=== PATIENT | male | born 1990 | race Caucasian/White ===

== ENCOUNTER 2022-09-21 09:17 | Outpatient (RCR) | payer OTHER, SELFPAY ==
--- NOTE | 2022-09-22 09:28 | PC.NURSE ---
Marco did not show up to the program for their first day at [facility]. I called and spoke to Marco who stated they had a crisis and are currently admitted to the Behavioral Health Inpatient unit at [facility]. [facility] staff is aware. Patient discharged from [facility].
== END 2022-09-21 23:59 | disposition admitted as inpatient to this hospital (09) ==
LOC: HO.PHPA 09:17
PROVIDERS: Visit Provider Psychiatry & Neurology Psychiatry
DX: F31.32 Bipolar disorder, current episode depressed, moderate (principal); F25.1 Schizoaffective disorder, depressive type; F10.20 Alcohol dependence, uncomplicated; F12.20 Cannabis dependence, uncomplicated; F64.0 Transsexualism; Z91.51 Personal history of suicidal behavior

== ENCOUNTER 2022-10-15 09:00 | Outpatient (RCR) | payer OTHER, SELFPAY ==
[2022-10-14 12:56] VITALS: BP 104/80; PULSE 80; TEMP 36.8
[2022-10-14 12:57] VITALS: BMI 35.8
--- NOTE | 2022-10-14 14:30 | PC.ADMIT ---
Patient is a 32 year old trans-gendered female to male patient who uses he/him pronouns. 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 He was referred to [facility] by [facility] behavioral health unit x2 where he was admitted for the second time after being discharged recently from the unit on 09/08/22. Patient struggling with depression and SI. He has a history of multiple SA including trying to hang himself and overdose on medications with subsequent inpatient admissions. Most recent inpatient admission pt reportedly took 7 tabs with a bottle of wine in a SA on 09/19/22 as he reportedly was rejected by his best friend whom he professed his love to. In addition, patient also has a history of 26 ECT treatments. See Intergrative Assessment and [facility] discharge paperwork for more information. Patient is alert and oriented x4. Calm and cooperative. Presented with depressed mood and anxious affect. Denied SI or thoughts to harm himself. When I asked him how her felt about his past SA he stated, Grateful it didn't cause me to . Reviewed and gave patient a copy of his safety plan if needed. Medications reconciled with patient and [facility] discharge paperwork. Patient reports he is taking his medications as prescribed. Stated in the past he was not taking them as prescribed. He report his parents are in charge of his medications and have all his medications. Stated his parents fill a weekly pill organizer for him to take.
--- NOTE | 2022-10-14 15:24 | HO.PHPIOP ---
Case opened in treatment team.
--- NOTE | 2022-10-15 10:51 | PC.NURSE ---
Per clinician Sherry patient left the first group after getting into a disagreement with another patient. The topic was suicide. I called Marco and he was on his way home. He stated he was offended by the other group member and did not want to come back to the program. He is not willing to try and work it out with the other patient at this point. I asked him if he was having any suicidal thoughts and he stated he was after the incident. I asked him if he had any plans to kill himself or intention of killing himself and he stated he did not. I also asked him if he needed to go into the hospital and he stated he did not. I told him I thought it was a good idea to have crisis evaluate him at his home and he agreed (considering patient history). I called [facility] crisis and spoke to Elzbieta who is familiar with Marco. I gave Elzbieta patient aforementioned information and included his recent hospitalizations and that he is not interested in returning to [facility] Elzbieta stated she would call him and do a crisis assessment with Marco. I asked Elzbieta to call me if she is unable to get a hold of Lara and she stated she would. [facility] staff is aware.
--- NOTE | 2022-10-15 12:40 | PM.EVENT ---
Event Note Date of Service: 10/15/22 Event Note: This credit underwriter attempted to meet with patient for initial assessment on 10/14, and again today on 10/15. He left early both days, was unable to meet. Time Spent With Patient Time: Total time managing care of this patient today ____ minutes.
== END 2022-10-15 23:59 | disposition home or self-care (01) ==
LOC: HO.PHPA 09:00
PROVIDERS: Visit Provider Psychiatry & Neurology Psychiatry
DX: F31.4 Bipolar disorder, current episode depressed, severe, without psychotic features (principal); F25.1 Schizoaffective disorder, depressive type; F10.20 Alcohol dependence, uncomplicated; F12.20 Cannabis dependence, uncomplicated; F64.0 Transsexualism
CPT/HCPCS: 90853

== ENCOUNTER 2022-12-22 19:35 | Emergency (ER) | payer OTHER, SELFPAY ==
[2022-12-22 19:42] VITALS: BP 124/79; PULSE 98; RESP 18; TEMP 36.7; O2SAT 97; BMI 34.2
[2022-12-22] MEDS: LORazepam 1 MG TABLET PO (20:00)
[2022-12-22] MEDS: risperiDONE 1 MG TABLET PO (20:00)
--- NOTE | 2022-12-22 20:14 | MHC.EDTECH ---
pt refusing to give a urine sample at this time, RN AWARE.
[2022-12-22 20:19] LABS: COVID-19 Test Negative (Negative); IDNOW Serial# BCCEAD1C
--- NOTE | 2022-12-22 20:58 | ED_ITS ---
HPI - Psych General Chief Complaint: Psychiatric Symptoms Stated Complaint: crisis Time Seen by Provider: 12/22/22 19:39 Source: patient Mode of arrival: ambulatory Limitations: no limitations History of Present Illness HPI Narrative: 32-year-old female to male trans patient with a history of PTSD, schizoaffective disorder, anxiety, depression, SI presents via EMS from [facility], patient presented to [facility] for help and they advised for him to come here for eval. No homicidal ideation. Patient has thoughts without a particular plan to hurt themself. Patient has been hospitalized before for suicidal ideation. Patient states they are having delusions, auditory visual and tactile hallucination, nausea, diarrhea. Nausea and diarrhea intermittently over the past week, no recent atbx use.. Patient is currently taking Lamictal, Wellbutrin, Zoloft, Abilify, and testosterone. Patient states that they are questioning if there even real. Patient admits to daily marijuana use. Occasional alcohol use. Denies other drug use and tobacco use. Denies fevers, chills, sweats, chest pain, headache, blood in vomit or stool. Related Data Home Medications Medication Instructions Recorded Confirmed aripiprazole 20 mg tablet 1 tab PO DAILY depressive disorder 10/14/22 10/14/22 bupropion HCl 150 mg 24 hr tablet, 1 tab PO DAILY 10/14/22 10/14/22 extended release bupropion HCl 300 mg 24 hr tablet, 1 tab PO DAILY 10/14/22 10/14/22 extended release cetirizine 10 mg tablet 1 tab PO DAILY 10/14/22 10/14/22 cholecalciferol (vitamin D3) 50 50 mcg PO DAILY 10/14/22 10/14/22 mcg (2,000 unit) tablet famotidine 40 mg tablet 40 mg PO DAILY 10/14/22 10/14/22 fluticasone propionate 50 1 spray intranasal BID 10/14/22 10/14/22 mcg/actuation nasal spray,suspension lamotrigine 100 mg tablet 100 mg PO DAILY 10/14/22 10/14/22 lamotrigine 150 mg tablet 150 mg PO BEDTIME 10/14/22 10/14/22 omeprazole 20 mg capsule,delayed 1 cap PO DAILY 10/14/22 10/14/22 release sertraline 50 mg tablet 150 mg PO DAILY 10/14/22 10/14/22 testosterone 1 % (50 mg/5 gram) 1 packet topical DAILY 10/14/22 10/14/22 transdermal gel packet lamotrigine 200 mg tablet 1 tab PO BID 12/22/22 naltrexone 50 mg tablet 1 tab PO DAILY 12/22/22 Allergies Allergy/AdvReac Type Severity Reaction Status Date / Time oxycodone Allergy Rash Verified 10/14/22 10:54 walnut Allergy Rash Verified 10/14/22 10:54 Review of Systems Review of Systems: Constitutional : No Fever, No Chills ENT/Mouth : No Ear Pain, No Nasal Congestion, No sore throat Eyes: No Eye Pain, No Swelling, No Redness Cardiovascular : No Chest Pain, No SOB Respiratory : No Cough, No Sputum, No Dyspnea Gastrointestinal : + Nausea, no Vomiting, + Diarrhea, No Hematochezia, No Melena Genitourinary : No Dysuria, No Urinary Frequency, No Hematuria Musculoskeletal : No Myalgias Skin : No Skin Lesions, No rash Neuro : No Weakness, No Numbness, No Paresthesias, No Dizziness, No Headache Psych : + hallucinations, positive Anxiety, positive Depression, positive SI, NO HI All other systems reviewed and are negative Yes all other systems are reviewed and are negative [facility] Past Medical History Attestation statement: The following information was validated with the patient. Source: old records reviewed and nursing notes reviewed Social History Social History Household Members: None Patient Tobacco Use Status: Former Tobacco user Advance Directives: No Advance Directives Information Provided: No Physical Exam Vital Signs: Vital Signs: Last Vital Signs Temp 98.1 F 12/22/22 19:42 Pulse 98 12/22/22 19:42 Resp 18 12/22/22 19:42 BP 124/79 12/22/22 19:42 Pulse Ox 97 12/22/22 19:42 O2 Del Method 12/22/22 19:42 BMI result Body Mass Index 34.2 vss Appearance: Alert.? Oriented x3.? No acute distress.? Head: Normocephalic, atraumatic, no step-offs or deformities Eyes: Pupils equal, round and reactive to light.?? Neck: Normal inspection.? Neck supple.? CVS: Normal heart rate and rhythm.? Pulses normal.? Respiratory: No respiratory distress.? Breath sounds normal.? Abdomen: Soft and nontender.? Skin: Skin warm and dry.? Normal skin color.? Normal skin turgor.? Extremities: No lower extremity edema.? No calf ttp. 5/5 strength to bilateral upper and lower extremities Neuro: Oriented X 3.? No motor deficit.? No sensory deficit. CN 2-12 intact Course Reevaluation(s) Reevaluation #1: Patient has been adamantly refusing labs and urine since he got here. He does not medical complaints. I do not suspect metabolic disturbances. Vital signs are stable. At this time patient will be placed in observation to allow more time for inpatient psychiatric placement. At time observation was started patient common cooperative no acute distress. Will continue to monitor Time: 23:38 Medications Administered Discontinued Medications Generic Name Dose Route Start Last Admin Trade Name Freq PRN Reason Stop Dose Admin Lorazepam 1 mg 12/22/22 19:55 12/22/22 20:00 Lorazepam 1 Mg Tablet PO 12/22/22 19:56 1 mg ONCE ONE Administration Risperidone 1 mg 12/22/22 19:55 12/22/22 20:00 Risperidone 1 Mg Tablet PO 12/22/22 19:56 1 mg ONCE ONE Administration Medical Decision Making Medical Decision Making [facility] Narrative: 1136 32-year-old male presents with intermittent suicidal ideation, hallucinations, reports they have been having nausea and diarrhea intermittently over the past week however not at this time. Physical exam benign Likely a manic episode. Concerns for possible schizophrenia or bipolar disorder. I do not suspect metabolic abnormalities. Plan at this time basic labs, urine. Differential Diagnosis Differential Diagnoses: The differential diagnosis associated with the presentation includes Likely a manic episode. Concerns for possible schizophrenia or bipolar disorder. I do not suspect metabolic abnormalities. Admission/Observation Consideration of admission/observation: Escalation of care including admission/observation considered Consult Healthcare Provider Management of the patient was discussed with: Behavioral Health Provider Lab Data [facility] Lab Attestation statement: I reviewed the patient's lab results. Labs: Lab Results 12/22/22 Range/Units 19:56 COVID-19 (MIAH) Negative (Negative) COVID-19 Clin Com See Note Core Measures AMI core measures followed: Yes Measure exclusions: not indicated Critical Care Time Critical Care Time Critical Care Time: No Discharge Plan Discharge Clinical Impression: Acute psychosis Patient Disposition: Still a Patient Prescriptions: No Action lamotrigine 200 mg tablet 1 tab PO BID naltrexone 50 mg tablet 1 tab PO DAILY lamotrigine 150 mg Tablet 150 mg PO BEDTIME cetirizine 10 mg tablet 1 tab PO DAILY famotidine 40 mg Tablet 40 mg PO DAILY omeprazole 20 mg capsule,delayed release(DR/EC) 1 cap PO DAILY fluticasone propionate 50 mcg/actuation [place],Suspension 1 spray INTRANASAL BID Rx Instructions: administer into each nostril sertraline 50 mg Tablet 150 mg PO DAILY Rx Instructions: Take 3 tabs daily. lamotrigine 100 mg Tablet 100 mg PO DAILY testosterone 1 % (50 mg/5 gram) gel in packet 1 packet topical DAILY aripiprazole 20 mg tablet 1 tab PO DAILY bupropion HCl 300 mg tablet extended release 24 hr 1 tab PO DAILY bupropion HCl 150 mg tablet extended release 24 hr 1 tab PO DAILY cholecalciferol (vitamin D3) 50 mcg (2,000 unit) Tablet 50 mcg PO DAILY
--- NOTE | 2022-12-22 23:25 | MHC.EDTECH ---
pt continues to adamantly refuse all labs and imaging, PROVIDER AWARE.
--- NOTE | 2022-12-23 00:06 | PC.NURSE ---
Patient at the time of arrival restless/anxious, Ativan 1 mg PO and Risperidone 1 mg administered as ordered with + effective, patient currently in bed appears sleeping, patient disposition per [facility] is section 12 inpatient bed search, VSS, med rec completed/pending provider's approval, will continue to monitor.
--- NOTE | 2022-12-23 00:09 | PC.NURSE ---
Patient refused to provide us urine and blood sample for labs, we will re-approach in the morning, provider made aware.
[2022-12-23 06:51] VITALS: BP 122/73; PULSE 99; RESP 17; TEMP 36.7; O2SAT 97
--- NOTE | 2022-12-23 07:40 | PC.NURSE ---
pt is sleeping resp even and unlabored.
--- NOTE | 2022-12-23 07:56 | PHA.MEDREC ---
Pharmacy Consult ? Medication Reconciliation Pharmacy has reviewed the medication reconciliation completed by Ludin.
--- NOTE | 2022-12-23 08:10 | PC.NURSE ---
pt came out of they room and expressed to this rn that they would like to leave. care team aware.
--- NOTE | 2022-12-23 08:35 | PC.NURSE ---
pt seen by care team aware of plan of care.
[2022-12-23] MEDS: buPROPion HCl XL 150 MG TAB.ER.24H PO (09:09)
[2022-12-23] MEDS: Sertraline HCL 50 MG TABLET 150 MG PO (09:09)
[2022-12-23] MEDS: ARIPiprazole 20 MG TABLET PO (09:09)
[2022-12-23] MEDS: lamoTRIgine 100 MG TABLET PO (09:10)
[2022-12-23] MEDS: Omeprazole 20 MG CAPSULE.DR PO (09:10)
--- NOTE | 2022-12-23 09:19 | PC.NURSE ---
pt is a/o x 4 no sob/connie noted speaks in full sentences. pt denies any si/hi. lab and u/a to be done, pt is agreeable.
[2022-12-23 09:20] VITALS: BP 112/67; PULSE 90; RESP 17; TEMP 37.1; O2SAT 96
--- NOTE | 2022-12-23 09:46 | ECG_ITS ---
Test Reason : psych meds Blood Pressure : / mmHG Vent. Rate : 079 BPM Atrial Rate : 079 BPM P-R Int : 166 ms QRS Dur : 086 ms QT Int : 374 ms P-R-T Axes : 053 014 032 degrees QTc Int : 428 ms Normal sinus rhythm Normal ECG No previous ECGs available Referred By: Samy Cantrell Electronically Signed By:CINDY LITTLEJOHN
[2022-12-23 09:52] LABS: MANUAL DIFF FLAG NO
[2022-12-23 09:53] LABS: Basophils Percent Auto 0.6 % (0-2); Eosinophils Absolute Auto 0.1 X10*3/uL (0.0-0.4); Eosinophils Percent Auto 2.1 % (0-4); Hematocrit 41.8 % (42.0-52.0); Hemoglobin 14.2 g/dl (14.0-18.0); Lymphocytes Absolute Auto 1.9 X10*3/uL (1.2-4.9); Lymphocytes Percent Auto 40.4 % (20-40); Mean Corpuscular Hemoglobin 28.3 pg (27.0-33.0); Mean Corpuscular Volume 83.4 fL (80.0-98.0); Mean Platelet Volume 9.4 fL (9.4-12.4); Monocytes Absolute Auto 0.4 X10*3/uL (0.1-1.2); Monocytes Percent Auto 8.9 % (2-11); Neutrophils Absolute Auto 2.3 x10*3/uL (2.0-8.3); Platelet Count 207 X10*3/uL (160-400); Red Blood Count 5.01 X10*6/uL (4.60-5.80); Red Cell Distribution Width 12.4 % (11.0-16.0); White Blood Count 4.7 X10*3/uL (4.8-10.8)
[2022-12-23 10:10] LABS: Alanine Aminotransferase 33 U/L (0-40); Albumin Level 4.1 g/dL (3.5-5.0); Alkaline Phosphatase 53 U/L (39-117); Anion Gap 12 (12-20); Aspartate Amino Transferase 24 U/L (5-37); Bilirubin Total 0.8 mg/dL (0.0-1.0); Blood Urea Nitrogen 15 mg/dL (9-16); Calcium 9.1 mg/dL (8.4-10.2); Carbon Dioxide 26 mmol/L (22-29); Chloride 108 mmol/L (96-108); Creatinine Clr Calc Pharmacy 108.5; Estimated Glomerular Filt Rate > 60; Glucose Random 101 mg/dL (60-115); Potassium 4.3 mmol/L (3.3-5.1); Sodium 142 mmol/L (135-145); Total Protein 6.5 g/dL (6.5-8.0)
[2022-12-23 10:18] LABS: Acetaminophen LAB < 17 mcg/mL (<30); Ethanol < 10 mg/dL; Salicylate < 5.0 mg/dL (15-30)
[2022-12-23 10:30] LABS: Appearance Urine Cloudy; Color Urine Dark Yellow; Glucose Urine UA Negative (Negative); Leukocyte Esterase Urine Moderate (2+) (Negative); Nitrite Urine Negative (Negative); PH 5.5 (5.0-9.0); Specific Gravity - Urine 1.025 (1.005-1.025); UMIC TRIGGER UA YES; Urine Blood Negative (Negative); Urine Ketones Negative (Negative); Urine Protein Trace mg/dL (Neg-Trace)
[2022-12-23 10:41] LABS: Amphetamine Screen Urine Not Detected (Not Detect); Barbiturates, Urine Not Detected (Not Detect); Benzodiazepines Screen Urine Not Detected (Not Detect); Cannabinoid Screen Urine POSITIVE (Not Detect); Cocaine Screen Urine Not Detected (Not Detect); Fentanyl, urine Not Detected (Not Detect); Opiate Screen Urine Not Detected (Not Detect); Phencyclidine Screen Urine Not Detected (Not Detect)
[2022-12-23 10:51] LABS: Bacteria Urine 4+ (None Seen); WBC Urine 21-50 /HPF (0-5)
--- NOTE | 2022-12-23 11:25 | PC.NURSE ---
pt is on the phone in the common area. pt is very tearful and stating that they want to go home. pt has return to there room and continues to be tearful and non-aggressive.
--- NOTE | 2022-12-23 11:50 | PC.NURSE ---
sonya (psychiatrist) at bedside, pt aware of plan of care.
--- NOTE | 2022-12-23 12:05 | MHC.CARE ---
CARE Team [employer] Milka Ponce received a return call from Pts psychiatrist Liz for concerns in reference to pt?s current presentation. Liz reports when she met with pt yesterday she was presenting as off baseline and displaying abnormal behaviors and being ?shaken up.? She reported pt was exhibiting symptoms of paranoia and psychosis including delusions and hallucinations. Symptoms include pt believing the [employer] can read their thoughts and people will know they?re a monster. Pt is also reported to believe they can time travel. Liz reported that it would be favorable to re-evaluate pt?s medications. She reports that pt emphasized that they do not feel safe. She states that pt?s recent psychosis is her biggest concern.
[2022-12-23] MEDS: Acetaminophen 325 MG TABLET 650 MG PO (12:50)
--- NOTE | 2022-12-23 12:54 | PC.NURSE ---
pt c/o 06/09 headache, med x 1 with Tylenol 650mg po.
--- NOTE | 2022-12-23 13:50 | MHC.CARE ---
Safety Plan: If Marco feels they are going to? harm themselves, call 911 and/or come to closest ED? If Marco is dysregulated at home and? is unsure of what to do, call [facility] crisis services for support over the phone, and guidance on what the next steps should be. [phone]. This is a 24 hr hotline and can also be utilized for general phone support. Or call 988 CARE Team will provide a check in call on 12/24/2022.? Treatment Recommendations: Marco will remain engaged in individual therapy sessions and psychiatric provider? Lara? continues? to take their? medications as prescribed. Marco will use TIPP skills when under emotional distress.? Marco will attend 3pm [facility] appointment? 12/23/22 Contacts: [facility] [phone] [facility] Crisis Hotline 0-016-[facility] TALK/ ? CARE Team [phone] opt 1? at [facility] ?Should be called if there are questions about today?s assessment or recommendations. This is not a hotline and should not be used in a crisis. Please discuss/ review this safety plan with current? psychologist and family members
--- NOTE | 2022-12-24 09:39 | MHC.CARE ---
CARE Team [employer] called Marco today for a follow-up at 9:40am at [phone]. Left a voicemail and prompt for them to call back. Consulted with MARCELLUS King
== END 2022-12-23 13:57 | disposition home or self-care (01) ==
PROVIDERS: Physician Assistant; Emergency Provider Internal Medicine
DX: F23 Brief psychotic disorder (principal); R45.851 Suicidal ideations; R11.0 Nausea; R19.7 Diarrhea, unspecified; Z20.822 Contact with and (suspected) exposure to COVID-19; Z20.828 Contact with and (suspected) exposure to other viral communicable diseases; Z79.899 Other long term (current) drug therapy
CPT/HCPCS: 36415; 80053; 80143; 80179; 80307; 81001; 82077; 85025; 87635; 93005; 99285

== ENCOUNTER 2023-04-29 13:01 | Emergency (ER) | payer OTHER, SELFPAY ==
[2023-04-29 13:10] VITALS: BP 130/89; PULSE 98; RESP 18; TEMP 37.1; O2SAT 98; BMI 35.5
--- NOTE | 2023-04-29 13:16 | ED_ITS ---
HPI - Psych General Chief Complaint: Psychiatric Symptoms Stated Complaint: crisis Time Seen by Provider: 04/29/23 13:04 Source: patient Mode of arrival: ambulatory Limitations: no limitations History of Present Illness HPI Narrative: 33 yo male with history of PTSD, schizoaffective disorder, anxiety, depression, SI?with prior attempts presents to the ER from his therapist office via EMS for evaluation of worsening depression and SI for the last 2-3 months. He was hospitalized at [facility] with some improvement in his chronic depression. He went through a divorce this last year that has been hard on him. He has been compliant with his psych meds and seeing his therapist regularly. They recommended he come into the ER for psych evaluation. He reports thinking about OD'ing on his meds. He denies taking action. No ETOH or illicit drugs aside from marijuana. MD complaint: suicidal ideation and feels depressed Onset (ago): month(s) Duration: getting worse History of same: Yes Relieving factors: none Exacerbating factors: none Context: significant life stressor Associated psychiatric symptoms: depression and suicidal ideation Associated symptoms: denies other symptoms If self harm: admits thoughts of self harm and has plan Details of plan: OD Related Data Home Medications Medication Instructions Recorded Confirmed aripiprazole 20 mg tablet 1 tab PO DAILY 12/23/22 12/23/22 bupropion HCl 150 mg 24 hr tablet, 1 tab PO DAILY 12/23/22 12/23/22 extended release lamotrigine 100 mg tablet 1 tab PO QAM 12/23/22 12/23/22 lamotrigine 150 mg tablet 1 tab PO BEDTIME 12/23/22 12/23/22 omeprazole 20 mg capsule,delayed 1 cap PO DAILY 12/23/22 12/23/22 release sertraline 50 mg tablet 3 tab PO DAILY 12/23/22 12/23/22 Allergies Allergy/AdvReac Type Severity Reaction Status Date / Time oxycodone Allergy Rash Verified 10/14/22 10:54 walnut Allergy Rash Verified 10/14/22 10:54 Review of Systems Review of Systems: Yes all other systems are reviewed and are negative [facility] Social History Social History Household Members: None Alcohol intake: never Patient Tobacco Use Status: Former Tobacco user Smoked in Last 30 Days: Yes Use of substances other than those prescribed or required for medical reasons: Yes Substance Use Type: Marijuana Advance Directives: No Advance Directives Information Provided: Yes Physical Exam Vital Signs: Vital Signs: Last Vital Signs Temp 97.8 F 04/29/23 15:47 Pulse 98 04/29/23 15:47 Resp 20 04/29/23 15:47 BP 122/79 04/29/23 15:47 Pulse Ox 96 04/29/23 15:47 O2 Del Method Room Air 04/29/23 15:47 BMI result Body Mass Index 35.5 Appearance: Alert. Oriented X3. No acute distress. Head: normocephalic, atraumatic. Eyes: Pupils equal, round and reactive to light. ENT: Pharynx normal. No tonsillar swelling or exudate. Neck: Normal inspection. Neck supple. CVS: Normal heart rate and rhythm. Pulses normal. Respiratory: No respiratory distress. Breath sounds normal. Abdomen: Soft and nontender. +BS x4 Skin: Skin warm and dry. Normal skin color. Normal skin turgor. No rashes. Extremities: No lower extremity edema. No joint swelling. Neuro/psych: Oriented X 3. No motor deficit. No sensory deficit. CN II-XII intact. Normal speech and cognition. +SI, No HI, No VH/VH. makes eye contact. Medical Decision Making Medical Decision Making [facility] Narrative: 33 yo male presenting with worsening depression and SI. Hx the same. Now denying SI to CARE team. VSS. Labs unremarkable. CARE team spoke w/ family - feel safe taking him home with plan to follow up with partial on Tuesday. Family dispenses his meds. safety plan in place. stable for d/c home Differential Diagnosis Differential Diagnoses: The differential diagnosis associated with the presentation includes substance induced mood disorder, acute psychosis, schizophrenia, schizoaffective disorder, PTSD, bipolar disorder, major depression with psychotic features Admission/Observation Consideration of admission/observation: Escalation of care including admission/observation considered considered psych admit for active si Consult Healthcare Provider Management of the patient was discussed with: Behavioral Health Provider Lab Data [facility] Lab Attestation statement: I reviewed the patient's lab results. 04/29/23 13:55 04/29/23 13:55 Labs: Lab Results 04/29/23 04/29/23 04/29/23 Range/Units 13:28 13:29 13:55 WBC 6.8 (4.8-10.8) X10*3/uL RBC 5.42 (4.60-5.80) X10*6/uL Hgb 15.1 (14.0-18.0) g/dl Hct 44.2 (42.0-52.0) % MCV 81.5 (80.0-98.0) fL MCH 27.9 (27.0-33.0) pg MCHC 34.2 (31.0-36.0) g/dl RDW 12.7 (11.0-16.0) % Plt Count 248 (160-400) X10*3/uL MPV 9.4 (9.4-12.4) fL Immature Gran % (Auto) 0.3 (0.0-0.4) % Neut % (Auto) 57.3 (45-73) % Lymph % (Auto) 32.9 (20-40) % [place] % (Auto) 7.0 (2-11) % Eos % (Auto) 2.2 (0-4) % Baso % (Auto) 0.3 (0-2) % Lymph # (Auto) 2.2 (1.2-4.9) X10*3/uL [place] # (Auto) 0.5 (0.1-1.2) X10*3/uL Eos # (Auto) 0.2 (0.0-0.4) X10*3/uL Baso # (Auto) 0.0 (0.0-0.2) X10*3/uL Abs Immat Gran (auto) 0.02 (0.00-0.03) X10*3/uL Absolute Neuts (auto) 3.9 (2.0-8.3) x10*3/uL Absolute Nucleated RBC 0.000 (0.0-0.012) X10*3/uL Nucleated RBC % (auto) 0.0 (0.0-0.2) /100WBC Sodium (135-145) mmol/L Potassium (3.3-5.1) mmol/L Chloride (96-108) mmol/L Carbon Dioxide (22-29) mmol/L Anion Gap (12-20) BUN (9-16) mg/dL Creatinine (0.5-1.4) mg/dL Estim Creat Clear Calc Estimated GFR Random Glucose (60-115) mg/dL Calcium (8.4-10.2) mg/dL Magnesium (1.6-2.6) mg/dL Total Bilirubin (0.0-1.0) mg/dL Direct Bilirubin (0.0-0.5) mg/dL AST (5-37) U/L ALT (0-40) U/L Alkaline Phosphatase (39-117) U/L Total Protein (6.5-8.0) g/dL Albumin (3.5-5.0) g/dL Urine Color Yellow Urine Appearance Clear Urine pH 6.5 (5.0-9.0) Ur Specific [place] 1.010 (1.005-1.025) Urine Protein Negative (Neg-Trace) mg/dL Urine Glucose (UA) Negative (Negative) mg/dL Urine Ketones Negative (Negative) mg/dL Urine Blood Negative (Negative) Urine Nitrite Negative (Negative) Ur Leukocyte Esterase Moderate (2+) H (Negative) Urine RBC 0-2 (0-2) /HPF Urine WBC 21-50 H (0-5) /HPF Ur Squamous Epith Cells 0-2 (0-2) /HPF Urine Bacteria None Seen (None Seen) Hyaline Casts 0-2 (0-2) /LPF Urine Opiates Screen Not Detected (Not Detect) Urine Fentanyl Screen Not Detected (Not Detect) Ur Barbiturates Screen Not Detected (Not Detect) Ur Phencyclidine Scrn Not Detected (Not Detect) Ur Amphetamines Screen Not Detected (Not Detect) U Benzodiazepines Scrn Not Detected (Not Detect) Urine Cocaine Screen Not Detected (Not Detect) U Marijuana (THC) Screen POSITIVE H (Not Detect) Ethyl Alcohol mg/dL 04/29/23 Range/Units 13:55 WBC (4.8-10.8) X10*3/uL RBC (4.60-5.80) X10*6/uL Hgb (14.0-18.0) g/dl Hct (42.0-52.0) % MCV (80.0-98.0) fL MCH (27.0-33.0) pg MCHC (31.0-36.0) g/dl RDW (11.0-16.0) % Plt Count (160-400) X10*3/uL MPV (9.4-12.4) fL Immature Gran % (Auto) (0.0-0.4) % Neut % (Auto) (45-73) % Lymph % (Auto) (20-40) % [place] % (Auto) (2-11) % Eos % (Auto) (0-4) % Baso % (Auto) (0-2) % Lymph # (Auto) (1.2-4.9) X10*3/uL [place] # (Auto) (0.1-1.2) X10*3/uL Eos # (Auto) (0.0-0.4) X10*3/uL Baso # (Auto) (0.0-0.2) X10*3/uL Abs Immat Gran (auto) (0.00-0.03) X10*3/uL Absolute Neuts (auto) (2.0-8.3) x10*3/uL Absolute Nucleated RBC (0.0-0.012) X10*3/uL Nucleated RBC % (auto) (0.0-0.2) /100WBC Sodium 141 (135-145) mmol/L Potassium 3.7 (3.3-5.1) mmol/L Chloride 108 (96-108) mmol/L Carbon Dioxide 24 (22-29) mmol/L Anion Gap 13 (12-20) BUN 8 L (9-16) mg/dL Creatinine 0.80 (0.5-1.4) mg/dL Estim Creat Clear Calc 146.6 Estimated GFR > 60 Random Glucose 119 H (60-115) mg/dL Calcium 10.0 D (8.4-10.2) mg/dL Magnesium 2.2 (1.6-2.6) mg/dL Total Bilirubin 0.5 (0.0-1.0) mg/dL Direct Bilirubin 0.2 (0.0-0.5) mg/dL AST 14 (5-37) U/L ALT 21 (0-40) U/L Alkaline Phosphatase 51 (39-117) U/L Total Protein 6.8 (6.5-8.0) g/dL Albumin 4.1 (3.5-5.0) g/dL Urine Color Urine Appearance Urine pH (5.0-9.0) Ur Specific [place] (1.005-1.025) Urine Protein (Neg-Trace) mg/dL Urine Glucose (UA) (Negative) mg/dL Urine Ketones (Negative) mg/dL Urine Blood (Negative) Urine Nitrite (Negative) Ur Leukocyte Esterase (Negative) Urine RBC (0-2) /HPF Urine WBC (0-5) /HPF Ur Squamous Epith Cells (0-2) /HPF Urine Bacteria (None Seen) Hyaline Casts (0-2) /LPF Urine Opiates Screen (Not Detect) Urine Fentanyl Screen (Not Detect) Ur Barbiturates Screen (Not Detect) Ur Phencyclidine Scrn (Not Detect) Ur Amphetamines Screen (Not Detect) U Benzodiazepines Scrn (Not Detect) Urine Cocaine Screen (Not Detect) U Marijuana (THC) Screen (Not Detect) Ethyl Alcohol < 10 mg/dL External Record Review External record reviewed: Inpatient record, Office record, Outpatient record, Prior outpatient labs and Prior outpatient radiology Prescription Management I considered prescription management with: Other (antipsychotics) Chronic Conditions Patient?s care impacted by: Other (schizozaffective disorder, mental illness) Social Determinants Patient?s care significantly limited by Social Determinants of Health including: Other Social Determinant of Health Critical Care Time Critical Care Time Critical Care Time: No Discharge Plan Discharge Clinical Impression: Depression Patient Disposition: Home, Self-Care Instructions: Depression (DC) Additional Instructions: Follow up with partial next week Follow up with your therapist, psychiatrist and doctor as soon as possible. If you develop new or worsening symptoms call 911 or come back to the ER for further evaluation. Prescriptions: No Action lamotrigine 150 mg tablet 1 tab PO BEDTIME omeprazole 20 mg capsule,delayed release(DR/EC) 1 cap PO DAILY sertraline 50 mg tablet 3 tab PO DAILY lamotrigine 100 mg tablet 1 tab PO QAM aripiprazole 20 mg tablet 1 tab PO DAILY bupropion HCl 150 mg tablet extended release 24 hr 1 tab PO DAILY Interventions: [place]-Suicide Risk Severity Scale Last Done: 04/29/23 13:29
--- NOTE | 2023-04-29 13:33 | PC.NURSE ---
Patient presents from his therapist for thoughts of hurting himself. Patient stating that he has plans to overdose on medications. Patient denies starting to collect medication to go through with this plan. Patient calm and cooperative with staff at this time.
[2023-04-29 14:03] LABS: MANUAL DIFF FLAG NO
[2023-04-29 14:09] LABS: Appearance Urine Clear; Color Urine Yellow; Glucose Urine UA Negative (Negative); Leukocyte Esterase Urine Moderate (2+) (Negative); Nitrite Urine Negative (Negative); PH 6.5 (5.0-9.0); UMIC TRIGGER UACC YES; Urine Blood Negative (Negative); Urine Ketones Negative (Negative); Urine Protein Negative (Neg-Trace)
[2023-04-29 14:11] LABS: Basophils Percent Auto 0.3 % (0-2); Eosinophils Absolute Auto 0.2 X10*3/uL (0.0-0.4); Eosinophils Percent Auto 2.2 % (0-4); Hematocrit 44.2 % (42.0-52.0); Hemoglobin 15.1 g/dl (14.0-18.0); Imm Gran Abs Auto 0.02 X10*3/uL (0.00-0.03); Imm Gran Pct Auto 0.3 % (0.0-0.4); Lymphocytes Absolute Auto 2.2 X10*3/uL (1.2-4.9); Lymphocytes Percent Auto 32.9 % (20-40); Mean Corpuscular HGB Conc 34.2 g/dl (31.0-36.0); Mean Corpuscular Hemoglobin 27.9 pg (27.0-33.0); Mean Corpuscular Volume 81.5 fL (80.0-98.0); Mean Platelet Volume 9.4 fL (9.4-12.4); Monocytes Absolute Auto 0.5 X10*3/uL (0.1-1.2); Neutrophils Absolute Auto 3.9 x10*3/uL (2.0-8.3); Neutrophils Percent Auto 57.3 % (45-73); Platelet Count 248 X10*3/uL (160-400); Red Blood Count 5.42 X10*6/uL (4.60-5.80); Red Cell Distribution Width 12.7 % (11.0-16.0); White Blood Count 6.8 X10*3/uL (4.8-10.8)
[2023-04-29 14:15] LABS: Bacteria Urine None Seen (None Seen); Hyaline Casts Urine 0-2 /LPF (0-2); RBC Urine 0-2 /HPF (0-2); Squamous Epithelial Cell Urine 0-2 /HPF (0-2); UACC Culture Trigger YES; WBC Urine 21-50 /HPF (0-5)
[2023-04-29 14:17] LABS: Amphetamine Screen Urine Not Detected (Not Detect); Barbiturates, Urine Not Detected (Not Detect); Benzodiazepines Screen Urine Not Detected (Not Detect); Cannabinoid Screen Urine POSITIVE (Not Detect); Cocaine Screen Urine Not Detected (Not Detect); Fentanyl, urine Not Detected (Not Detect); Opiate Screen Urine Not Detected (Not Detect); Phencyclidine Screen Urine Not Detected (Not Detect)
[2023-04-29 14:57] LABS: Alanine Aminotransferase 21 U/L (0-40); Albumin Level 4.1 g/dL (3.5-5.0); Alkaline Phosphatase 51 U/L (39-117); Anion Gap 13 (12-20); Aspartate Amino Transferase 14 U/L (5-37); Bilirubin Direct 0.2 mg/dL (0.0-0.5); Bilirubin Total 0.5 mg/dL (0.0-1.0); Blood Urea Nitrogen 8 mg/dL (9-16); Carbon Dioxide 24 mmol/L (22-29); Chloride 108 mmol/L (96-108); Creatinine Clr Calc Pharmacy 146.6; Estimated Glomerular Filt Rate > 60; Ethanol < 10 mg/dL; Glucose Random 119 mg/dL (60-115); Magnesium 2.2 mg/dL (1.6-2.6); Potassium 3.7 mmol/L (3.3-5.1); Sodium 141 mmol/L (135-145); Total Protein 6.8 g/dL (6.5-8.0)
[2023-04-29 15:47] VITALS: BP 122/79; PULSE 98; RESP 20; TEMP 36.6; O2SAT 96
== END 2023-04-29 16:27 | disposition home or self-care (01) ==
PROVIDERS: Physician Assistant; Emergency Provider Emergency Medicine Emergency Medical Services; PCP Nurse Practitioner Family
DX: F32.A Depression, unspecified (principal); R45.851 Suicidal ideations; Z91.51 Personal history of suicidal behavior; F43.10 Post-traumatic stress disorder, unspecified; F25.9 Schizoaffective disorder, unspecified; F41.9 Anxiety disorder, unspecified; F12.90 Cannabis use, unspecified, uncomplicated; Z72.89 Other problems related to lifestyle; Z63.5 Disruption of family by separation and divorce; Z87.891 Personal history of nicotine dependence; Z79.899 Other long term (current) drug therapy
CPT/HCPCS: 36415; 80048; 80076; 80307; 81001; 83735; 85025; 87086; 99284; S9485

== ENCOUNTER 2023-06-08 21:09 | Inpatient (IN) | payer MEDICAID, OTHER, SELFPAY ==
[2023-06-08 21:18] VITALS: BP 129/84; PULSE 89; RESP 17; TEMP 36.8; O2SAT 97; BMI 35.5
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
--- NOTE | 2023-06-08 22:04 | PHA.MEDREC ---
Pharmacy Consult ? Medication Reconciliation Pharmacy has reviewed the medication reconciliation completed by Ludin. Recently filled medicaiton on claim that were missed in med list were lithium, lamotrigene, bupropion and sertraline. Patient did report no longer take lithium but takes the rest, therefore those were added. Patient also reported no longer taking rsiperidone which was removed from the list. Graciela Denney, PharmD
[2023-06-08] MEDS: LORazepam 1 MG TABLET PO (22:05)
[2023-06-08 22:33] LABS: MANUAL DIFF FLAG NO
[2023-06-08 22:35] LABS: Basophils Percent Auto 0.5 % (0-2); Eosinophils Absolute Auto 0.1 X10*3/uL (0.0-0.4); Eosinophils Percent Auto 1.6 % (0-4); Hematocrit 44.9 % (42.0-52.0); Hemoglobin 15.4 g/dl (14.0-18.0); Imm Gran Abs Auto 0.02 X10*3/uL (0.00-0.03); Imm Gran Pct Auto 0.2 % (0.0-0.4); Lymphocytes Absolute Auto 2.5 X10*3/uL (1.2-4.9); Lymphocytes Percent Auto 28.2 % (20-40); Mean Corpuscular HGB Conc 34.3 g/dl (31.0-36.0); Mean Corpuscular Hemoglobin 27.9 pg (27.0-33.0); Mean Corpuscular Volume 81.5 fL (80.0-98.0); Mean Platelet Volume 9.3 fL (9.4-12.4); Monocytes Absolute Auto 0.4 X10*3/uL (0.1-1.2); Monocytes Percent Auto 4.6 % (2-11); Neutrophils Absolute Auto 5.7 x10*3/uL (2.0-8.3); Neutrophils Percent Auto 64.9 % (45-73); Platelet Count 246 X10*3/uL (160-400); Red Blood Count 5.51 X10*6/uL (4.60-5.80); Red Cell Distribution Width 12.1 % (11.0-16.0); White Blood Count 8.8 X10*3/uL (4.8-10.8)
[2023-06-08 22:36] LABS: Appearance Urine Clear; Color Urine Yellow; Glucose Urine UA Negative (Negative); Leukocyte Esterase Urine Negative (Negative); Nitrite Urine Negative (Negative); PH 6.5 (5.0-9.0); Specific Gravity - Urine <= 1.005 (1.005-1.025); Urine Blood Negative (Negative); Urine Ketones Negative (Negative); Urine Protein Negative (Neg-Trace)
[2023-06-08 22:47] LABS: Amphetamine Screen Urine Not Detected (Not Detect); Barbiturates, Urine Not Detected (Not Detect); Benzodiazepines Screen Urine Not Detected (Not Detect); Cannabinoid Screen Urine POSITIVE (Not Detect); Cocaine Screen Urine Not Detected (Not Detect); Fentanyl, urine Not Detected (Not Detect); Opiate Screen Urine Not Detected (Not Detect); Phencyclidine Screen Urine Not Detected (Not Detect)
[2023-06-08 23:10] LABS: Alanine Aminotransferase 24 U/L (0-40); Albumin Level 4.4 g/dL (3.5-5.0); Alkaline Phosphatase 59 U/L (39-117); Anion Gap 15 (12-20); Aspartate Amino Transferase 15 U/L (5-37); Bilirubin Total 0.5 mg/dL (0.0-1.0); Blood Urea Nitrogen 8 mg/dL (9-16); Calcium 9.9 mg/dL (8.4-10.2); Carbon Dioxide 22 mmol/L (22-29); Chloride 106 mmol/L (96-108); Creatinine Clr Calc Pharmacy 89.5; Estimated Glomerular Filt Rate > 60; Ethanol < 10 mg/dL; Glucose Random 156 mg/dL (60-115); Potassium 3.2 mmol/L (3.3-5.1); Sodium 140 mmol/L (135-145); Total Protein 7.5 g/dL (6.5-8.0)
[2023-06-08] MEDS: traZODone HCL 100 MG TABLET PO (23:10)
[2023-06-09 04:01] VITALS: BP 97/59; PULSE 76; RESP 17; TEMP 36.7; O2SAT 96
--- NOTE | 2023-06-09 06:12 | PC.NURSE ---
Patient slept through the night, no distress observed/reported, disposition per [facility] is section 12 inpatient bed search, medication compliant, behavior non concerning, VSS, will continue to monitor.
[2023-06-09] MEDS: Omeprazole 20 MG CAPSULE.DR PO (06:27)
--- NOTE | 2023-06-09 08:56 | ECG_ITS ---
Test Reason : CHECK QT Blood Pressure : / mmHG Vent. Rate : 072 BPM Atrial Rate : 072 BPM P-R Int : 162 ms QRS Dur : 088 ms QT Int : 376 ms P-R-T Axes : 019 011 031 degrees QTc Int : 411 ms Normal sinus rhythm Normal ECG When compared with ECG of 23-DEC-2022 09:50, No significant change was found Referred By: Rolando Sauer Electronically Signed By:Ambrocio Llanos
[2023-06-09] MEDS: lamoTRIgine 25 MG TABLET 150 MG PO ×2 (09:14→21:08)
[2023-06-09] MEDS: ARIPiprazole 20 MG TABLET PO (09:14)
[2023-06-09] MEDS: Sertraline HCL 100 MG TABLET PO (09:14)
[2023-06-09] MEDS: Nicotine 21 MG PATCH.TD24 TRANSDERMA (09:14)
[2023-06-09] MEDS: buPROPion HCl XL 300 MG TAB.ER.24H PO (09:14)
[2023-06-09 09:38] LABS: COVID-19 Test Negative (Negative); IDNOW Serial# BCCEAD1C
[2023-06-09 15:04] VITALS: BP 110/56; PULSE 84; RESP 16; TEMP 37.2; O2SAT 97
[2023-06-09 17:15] VITALS: BP 109/67; PULSE 78; RESP 18; TEMP 36.3; O2SAT 99
--- NOTE | 2023-06-09 18:16 | PC.NURSE ---
PT reports 10/10 anxiety and appears very anxiously. PT requesting 1mg Ativan. call center agent (Shaquille Vázquez) contacted and approved one time TO for Ativan 1mg. Effect pending.
--- NOTE | 2023-06-09 18:17 | PC.NURSE ---
cover assembler and admission skin check completed with ELYSIA Mclaughlin. No acute findings.
[2023-06-09] MEDS: LORazepam 1 MG TABLET PO (18:26)
[2023-06-09] MEDS: traZODone HCL 50 MG TABLET PO (21:08)
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
[2023-06-10 06:00] VITALS: BP 118/76; PULSE 72; RESP 18; TEMP 36.6; O2SAT 99
[2023-06-10] MEDS: Omeprazole 20 MG CAPSULE.DR PO (06:34)
[2023-06-10] MEDS: lamoTRIgine 25 MG TABLET 150 MG PO ×2 (08:32→19:54)
[2023-06-10] MEDS: ARIPiprazole 20 MG TABLET PO (08:32)
[2023-06-10] MEDS: buPROPion HCl XL 300 MG TAB.ER.24H PO (08:32)
[2023-06-10] MEDS: Sertraline HCL 100 MG TABLET PO (08:33)
[2023-06-10] MEDS: Nicotine 21 MG PATCH.TD24 TRANSDERMA (08:33)
[2023-06-10 08:50] LABS: Estimated Average Glucose 94 mg/dL; Hemoglobin A1c % 4.9 %
[2023-06-10 09:20] LABS: Folate 11.5 ng/mL (> or = 4.0); Vitamin B12 389 pg/mL (200-900)
[2023-06-10] MEDS: Acetaminophen 325 MG TABLET 650 MG PO ×2 (09:24→14:58)
[2023-06-10 09:29] LABS: Alanine Aminotransferase 22 U/L (0-40); Albumin Level 4.2 g/dL (3.5-5.0); Alkaline Phosphatase 58 U/L (39-117); Anion Gap 11 (12-20); Aspartate Amino Transferase 14 U/L (5-37); Bilirubin Total 0.4 mg/dL (0.0-1.0); Blood Urea Nitrogen 13 mg/dL (9-16); Calcium 9.7 mg/dL (8.4-10.2); Carbon Dioxide 25 mmol/L (22-29); Chloride 107 mmol/L (96-108); Cholesterol 252 mg/dL; Creatinine Clr Calc Pharmacy 108.6; Estimated Glomerular Filt Rate > 60; Glucose Fasting 112 mg/dL (60-99); HDL Cholesterol 32 mg/dL; LDL Cholesterol Calculated 183 mg/dl; Potassium 4.2 mmol/L (3.3-5.1); Sodium 139 mmol/L (135-145); Thyroid Stimulating Hormone 1.39 uIU/mL (0.32-4.0); Total Protein 7.1 g/dL (6.5-8.0); Triglycerides 186 mg/dL
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
[2023-06-10 18:00] VITALS: BP 114/58; PULSE 77; TEMP 36.6; O2SAT 96
[2023-06-10] MEDS: traZODone HCL 100 MG TABLET PO (19:54)
[2023-06-11 06:00] VITALS: BP 132/75; PULSE 96; RESP 16; TEMP 36.4; O2SAT 96
[2023-06-11] MEDS: Omeprazole 20 MG CAPSULE.DR PO (06:25)
[2023-06-11] MEDS: Nicotine 21 MG PATCH.TD24 TRANSDERMA (09:01)
[2023-06-11] MEDS: ARIPiprazole 20 MG TABLET PO (09:02)
[2023-06-11] MEDS: buPROPion HCl XL 300 MG TAB.ER.24H PO (09:02)
[2023-06-11] MEDS: lamoTRIgine 25 MG TABLET 150 MG PO ×2 (09:02→20:01)
[2023-06-11] MEDS: Sertraline HCL 50 MG TABLET 150 MG PO (09:03)
[2023-06-11] MEDS: LORazepam 0.5 MG TABLET PO ×2 (15:20→20:04)
[2023-06-11 18:00] VITALS: BP 132/61; PULSE 86; RESP 17; TEMP 36.8; O2SAT 96
[2023-06-11] MEDS: traZODone HCL 100 MG TABLET PO (20:01)
--- NOTE | 2023-06-12 01:08 | HO.PSYCHPN ---
Subjective Subjective Date of Service: 06/11/23 Reason For Visit: SI Interim History: Patient feeling somewhat better some difficulty with insomnia Zoloft increased. Feeling safe engage with treatment Mental Status Exam Mental Status Exam Narrative: Appearance: casually groomed, good hygiene, in NAD Behavior: cooperative, calm Psychomotor: no agitation or retardation noted Speech: clear, normal rate/rhythm/volume, spontaneous TP: linear TC: no signs of psychosis or delusions, feeling better Mood: better SI: denies- but is intermittent and chronic HI: denies VH/AH: none Delusions: none Insight/judgment: fair x 2. Memory/cog: alert, oriented x 2. grossly intact to conversational testing. Diagnostics Vital Signs (24Hr): Vital Signs - 24 hr 06/11/23 06:00 06/11/23 18:00 Temperature 97.6 F 98.2 F Pulse Rate 96 86 Respiratory Rate 16 17 Blood Pressure 132/75 132/61 Pulse Oximetry 96 96 Oxygen Delivery Method Room Air BMI result Body Mass Index 35.5 Labs 06/08/23 22:28 06/10/23 08:09 Labs: Laboratory Results - last 48 hr 06/10/23 06/10/23 06/10/23 08:09 08:09 08:09 Sodium 139 Potassium 4.2 D Chloride 107 Carbon Dioxide 25 Anion Gap 11 L BUN 13 Creatinine 1.08 Estim Creat Clear Calc 108.6 Estimated GFR > 60 Fasting Glucose 112 H Estimat Average Glucose 94 Hemoglobin A1c % 4.9 Calcium 9.7 Total Bilirubin 0.4 AST 14 ALT 22 Alkaline Phosphatase 58 Total Protein 7.1 Albumin 4.2 Triglycerides 186 Cholesterol 252 LDL Cholesterol, Calc 183 HDL Cholesterol 32 Vitamin B12 389 Folate 11.5 TSH 1.39 Medications Medications Current Medications Acetaminophen (Acetaminophen 325 Mg Tablet) 650 mg PO Q6H PRN PRN Reason: Headache/Pain Mild Scale (1-3) Last Admin: 06/10/23 14:58 Dose: 650 mg Al Hydroxide/Mg Hydroxide (Magnesium Hydrox/Alum Hydrox 30 Ml Oral.Susp) 30 ml PO Q6H PRN PRN Reason: Heartburn/Nausea Aripiprazole (Aripiprazole 20 Mg Tablet) 20 mg PO DAILY [facility] Last Admin: 06/11/23 09:02 Dose: 20 mg Bupropion HCl (Bupropion Hcl Xl 300 Mg Tab.Er.24h) 300 mg PO DAILY [facility] Last Admin: 06/11/23 09:02 Dose: 300 mg Hydroxyzine HCl (Hydroxyzine Hcl 25 Mg Tablet) 25 mg PO Q6H PRN PRN Reason: Anxiety Lamotrigine (Lamotrigine 25 Mg Tablet) 150 mg PO BID [facility] Last Admin: 06/11/23 20:01 Dose: 150 mg Lorazepam (Lorazepam 0.5 Mg Tablet) 0.5 mg PO Q4H PRN PRN Reason: Anxiety Last Admin: 06/11/23 20:04 Dose: 0.5 mg Magnesium Hydroxide (Milk Of Magnesia 30 Ml Oral.Susp) 30 ml PO DAILY PRN PRN Reason: Constipation Nicotine (Nicotine 21 Mg Patch.Td24) 21 mg TRANSDERMA DAILY [facility] Last Admin: 06/11/23 09:01 Dose: 21 mg Pt Own (Testosterone 50 Mg/5 Gram (1 %) Gel) 1 packet TOPICAL DAILY [facility] Last Admin: 06/11/23 11:35 Dose: 1 packet Omeprazole (Omeprazole 20 Mg Capsule.Dr) 20 mg PO DAILY@0630 [facility] Last Admin: 06/11/23 06:25 Dose: 20 mg Sertraline HCl (Sertraline Hcl 50 Mg Tablet) 150 mg PO DAILY [facility] Last Admin: 06/11/23 09:03 Dose: 150 mg Trazodone HCl (Trazodone Hcl 100 Mg Tablet) 100 mg PO BEDTIME PRN PRN Reason: Insomnia Last Admin: 06/11/23 20:01 Dose: 100 mg Allergies Allergies Allergy/AdvReac Type Severity Reaction Status Date / Time oxycodone Allergy Rash Verified 10/14/22 10:54 walnut Allergy Rash Verified 10/14/22 10:54 Assessment & Plan Assessment & Plan (1) Borderline personality disorder: Status: Acute Code(s): F60.3 - Borderline personality disorder (2) Bipolar 2 disorder, major depressive episode: Status: Acute Code(s): F31.81 - Bipolar II disorder Plan Faby is a 33 trans male who was assessed in the community by [facility] at request of his therapist due to suicidal ideation with plan to shoot himself. Pt reports chronic intermittent suicidal ideation. Pt denies any plan or intent to harm himself. He reports feeling better today. We discussed risks, benefits and alternative treatment options. Pt asks to increase sertraline to 150mg po daily. PLAN 1. Admit to M5, CV, 15 minutes checks for safety 2. Increase sertraline to 150mg po daily 3. Obtain collateral information 4. Aftercare planning. 06/11/2023 Patient seen case reviewed with treatment team patient gradually improving continue plan of care Informed Consent: understands Reason for continued inpatient stay Substantial Risk for: harm to self and rapid decompensation Time Spent With Patient Time: Total time managing care of this patient today ____ minutes.
[2023-06-12 06:00] VITALS: BP 116/73; PULSE 88; RESP 16; TEMP 36.1; O2SAT 98
[2023-06-12] MEDS: Omeprazole 20 MG CAPSULE.DR PO (06:32)
[2023-06-12] MEDS: lamoTRIgine 25 MG TABLET 150 MG PO ×2 (08:57→19:59)
[2023-06-12] MEDS: ARIPiprazole 20 MG TABLET PO (08:57)
[2023-06-12] MEDS: Nicotine 21 MG PATCH.TD24 TRANSDERMA (08:57)
[2023-06-12] MEDS: Sertraline HCL 50 MG TABLET 150 MG PO (08:57)
[2023-06-12] MEDS: buPROPion HCl XL 300 MG TAB.ER.24H PO (08:57)
[2023-06-12] MEDS: LORazepam 0.5 MG TABLET PO ×2 (13:09→19:58)
[2023-06-12 18:00] VITALS: BP 135/78; PULSE 94; TEMP 36.2; O2SAT 97
[2023-06-12] MEDS: traZODone HCL 100 MG TABLET PO (19:59)
[2023-06-12] MEDS: traZODone HCL 50 MG TABLET PO (22:44)
--- NOTE | 2023-06-13 00:53 | P.PNPSI_ITS ---
Subjective Subjective Date of Service: 06/12/23 Reason For Visit: SI Subjective Notes: Conditional Voluntary Interim History: Patient engaged in treatment full affect when seen some insomnia Medication Compliance: Yes Mental Status Exam Mental Status Exam Narrative: Appearance: casually groomed, good hygiene, in NAD Behavior: cooperative, calm Psychomotor: no agitation or retardation noted Speech: clear, normal rate/rhythm/volume, spontaneous TP: linear TC: no signs of psychosis or delusions, feeling better Mood: better SI: denies- but is intermittent and chronic HI: denies VH/AH: none Delusions: none Insight/judgment: fair x 2. Memory/cog: alert, oriented x 2. grossly intact to conversational testing. Diagnostics Vital Signs (24Hr): Vital Signs - 24 hr 06/12/23 06:00 06/12/23 18:00 Temperature 96.9 F 97.2 F Pulse Rate 88 94 Respiratory Rate 16 Blood Pressure 116/73 135/78 Pulse Oximetry 98 97 Oxygen Delivery Method Room Air Room Air BMI result Body Mass Index 35.5 Labs 06/08/23 22:28 06/10/23 08:09 Medications Medications Current Medications Acetaminophen (Acetaminophen 325 Mg Tablet) 650 mg PO Q6H PRN PRN Reason: Headache/Pain Mild Scale (1-3) Last Admin: 06/10/23 14:58 Dose: 650 mg Al Hydroxide/Mg Hydroxide (Magnesium Hydrox/Alum Hydrox 30 Ml Oral.Susp) 30 ml PO Q6H PRN PRN Reason: Heartburn/Nausea Aripiprazole (Aripiprazole 20 Mg Tablet) 20 mg PO DAILY [facility] Last Admin: 06/12/23 08:57 Dose: 20 mg Bupropion HCl (Bupropion Hcl Xl 300 Mg Tab.Er.24h) 300 mg PO DAILY [facility] Last Admin: 06/12/23 08:57 Dose: 300 mg Hydroxyzine HCl (Hydroxyzine Hcl 25 Mg Tablet) 25 mg PO Q6H PRN PRN Reason: Anxiety Lamotrigine (Lamotrigine 25 Mg Tablet) 150 mg PO BID [facility] Last Admin: 06/12/23 19:59 Dose: 150 mg Lorazepam (Lorazepam 0.5 Mg Tablet) 0.5 mg PO Q4H PRN PRN Reason: Anxiety Last Admin: 06/12/23 19:58 Dose: 0.5 mg Magnesium Hydroxide (Milk Of Magnesia 30 Ml Oral.Susp) 30 ml PO DAILY PRN PRN Reason: Constipation Nicotine (Nicotine 21 Mg Patch.Td24) 21 mg TRANSDERMA DAILY [facility] Last Admin: 06/12/23 08:57 Dose: 21 mg Pt Own (Testosterone 50 Mg/5 Gram (1 %) Gel) 1 packet TOPICAL DAILY [facility] Last Admin: 06/12/23 11:04 Dose: 1 packet Omeprazole (Omeprazole 20 Mg Capsule.Dr) 20 mg PO DAILY@0630 [facility] Last Admin: 06/12/23 06:32 Dose: 20 mg Sertraline HCl (Sertraline Hcl 50 Mg Tablet) 150 mg PO DAILY [facility] Last Admin: 06/12/23 08:57 Dose: 150 mg Trazodone HCl (Trazodone Hcl 100 Mg Tablet) 100 mg PO BEDTIME PRN PRN Reason: Insomnia Last Admin: 06/12/23 19:59 Dose: 100 mg Allergies Allergies Allergy/AdvReac Type Severity Reaction Status Date / Time oxycodone Allergy Rash Verified 10/14/22 10:54 walnut Allergy Rash Verified 10/14/22 10:54 Assessment & Plan Assessment & Plan (1) Borderline personality disorder: Status: Acute Code(s): F60.3 - Borderline personality disorder (2) Bipolar 2 disorder, major depressive episode: Status: Acute Code(s): F31.81 - Bipolar II disorder Plan Faby is a 33 trans male who was assessed in the community by [facility] at request of his therapist due to suicidal ideation with plan to shoot himself. Pt reports chronic intermittent suicidal ideation. Pt denies any plan or intent to harm himself. He reports feeling better today. We discussed risks, benefits and alternative treatment options. Pt asks to increase sertraline to 150mg po daily. PLAN 1. Admit to M5, CV, 15 minutes checks for safety 2. Increase sertraline to 150mg po daily 3. Obtain collateral information 4. Aftercare planning. 06/11/2023 Patient seen case reviewed with treatment team patient gradually improving continue plan of care 06/12/2023 Increase trazodone as needed continue plan of care Reason for continued inpatient stay Substantial Risk for: harm to self and rapid decompensation Time Spent With Patient Time: Total time managing care of this patient today ____ minutes.
[2023-06-13] MEDS: Omeprazole 20 MG CAPSULE.DR PO (06:34)
[2023-06-13 08:30] VITALS: BP 132/87; PULSE 99; RESP 18; TEMP 36.3; O2SAT 99
[2023-06-13] MEDS: lamoTRIgine 25 MG TABLET 150 MG PO ×2 (08:51→20:16)
[2023-06-13] MEDS: Sertraline HCL 50 MG TABLET 150 MG PO (08:52)
[2023-06-13] MEDS: buPROPion HCl XL 300 MG TAB.ER.24H PO (08:53)
[2023-06-13] MEDS: ARIPiprazole 20 MG TABLET PO (08:53)
[2023-06-13] MEDS: Nicotine 21 MG PATCH.TD24 TRANSDERMA (10:19)
--- NOTE | 2023-06-13 10:34 | P.PNPSI_ITS ---
Subjective Subjective Date of Service: 06/13/23 Reason For Visit: SI Interim History: met with patient; discussed with team; reviewed progress notes Patient reports that he is doing better SI remains fully resolved. Patient shared some of the issues surrounding this admission referred to a triggering discussion during the therapy session. Patient reports that those emotions have now settled he feels ready to go home. Patient likes his therapist with whom he has a good rapport. Denies any SI. Says he normally has chronic SI which he is able to ignore and only sometimes does get intense enough for he reaches out for help; patient says he knows the difference between the 2 will reach out for help again if feeling unsafe. Patient denies any access to a gun and social Work talked to his parents, with whom he lives and they corroborate. Discussed medication feels that increase Zoloft has helped. Does not need refills for any other medications. Further discussed medication management and patient says Abilify was just simply to augment antidepressants; physician underwriter shared how all of his antidepressants have room to increase the dose which could perhaps render Abilify unnecessary, thus reducing potential for unwanted side effect risks. Patient appreciated the information and will discuss this with outpatient provider. Mental Status Exam Mental Status Exam Narrative: Pt is alert and oriented; behavior is cooperative, friendly and calm; patient is not in distress; dressed in casual attire with adequate hygiene; mood is described as good and affect congruent; eye contact appropriate; Speech is normal rate, volume and prosody and not pressured; no psychomotor agitation/retardation present; thought process is organized and goal directed; Thought content is on tx; otherwise pertinent to relevant topics and without any delusional content, paranoid ideations or grandiosity; denies any SI/HI. There is no evidence of perceptual disturbance. Patients insight and judgment appear intact. Diagnostics Vital Signs (24Hr): Vital Signs - 24 hr 06/12/23 18:00 06/13/23 08:30 Temperature 97.2 F 97.4 F Pulse Rate 94 99 Respiratory Rate 18 Blood Pressure 135/78 132/87 Pulse Oximetry 97 99 Oxygen Delivery Method Room Air Room Air BMI result Body Mass Index 35.5 Labs 06/08/23 22:28 06/10/23 08:09 Medications Medications Current Medications Acetaminophen (Acetaminophen 325 Mg Tablet) 650 mg PO Q6H PRN PRN Reason: Headache/Pain Mild Scale (1-3) Last Admin: 06/10/23 14:58 Dose: 650 mg Al Hydroxide/Mg Hydroxide (Magnesium Hydrox/Alum Hydrox 30 Ml Oral.Susp) 30 ml PO Q6H PRN PRN Reason: Heartburn/Nausea Aripiprazole (Aripiprazole 20 Mg Tablet) 20 mg PO DAILY [facility] Last Admin: 06/13/23 08:53 Dose: 20 mg Bupropion HCl (Bupropion Hcl Xl 300 Mg Tab.Er.24h) 300 mg PO DAILY [facility] Last Admin: 06/13/23 08:53 Dose: 300 mg Hydroxyzine HCl (Hydroxyzine Hcl 25 Mg Tablet) 25 mg PO Q6H PRN PRN Reason: Anxiety Lamotrigine (Lamotrigine 25 Mg Tablet) 150 mg PO BID [facility] Last Admin: 06/13/23 08:51 Dose: 150 mg Lorazepam (Lorazepam 0.5 Mg Tablet) 0.5 mg PO Q4H PRN PRN Reason: Anxiety Last Admin: 06/12/23 19:58 Dose: 0.5 mg Magnesium Hydroxide (Milk Of Magnesia 30 Ml Oral.Susp) 30 ml PO DAILY PRN PRN Reason: Constipation Nicotine (Nicotine 21 Mg Patch.Td24) 21 mg TRANSDERMA DAILY [facility] Last Admin: 06/13/23 10:19 Dose: 21 mg Pt Own (Testosterone 50 Mg/5 Gram (1 %) Gel) 1 packet TOPICAL DAILY [facility] Last Admin: 06/13/23 10:19 Dose: 1 packet Omeprazole (Omeprazole 20 Mg Capsule.Dr) 20 mg PO DAILY@0630 [facility] Last Admin: 06/13/23 06:34 Dose: 20 mg Sertraline HCl (Sertraline Hcl 50 Mg Tablet) 150 mg PO DAILY [facility] Last Admin: 06/13/23 08:52 Dose: 150 mg Trazodone HCl (Trazodone Hcl 100 Mg Tablet) 100 mg PO BEDTIME PRN PRN Reason: Insomnia Last Admin: 06/12/23 19:59 Dose: 100 mg Allergies Allergies Allergy/AdvReac Type Severity Reaction Status Date / Time oxycodone Allergy Rash Verified 10/14/22 10:54 walnut Allergy Rash Verified 10/14/22 10:54 Assessment & Plan Assessment & Plan (1) Borderline personality disorder: Status: Acute Code(s): F60.3 - Borderline personality disorder (2) Bipolar 2 disorder, major depressive episode: Status: Acute Code(s): F31.81 - Bipolar II disorder Plan Faby is a 33 trans male who was assessed in the community by [facility] at request of his therapist due to suicidal ideation with plan to shoot himself. Pt reports chronic intermittent suicidal ideation. Pt denies any plan or intent to harm himself. He reports feeling better today. We discussed risks, benefits and alternative treatment options. Pt asks to increase sertraline to 150mg po daily. PLAN 1. Admit to , CV, 15 minutes checks for safety 2. Increase sertraline to 150mg po daily 3. Obtain collateral information 4. Aftercare planning. 06/11/2023 Patient seen case reviewed with treatment team patient gradually improving continue plan of care 06/12/2023 Increase trazodone as needed continue plan of care 06/13 patient's 3 day notice is coming due; remains with improved mood, no SI at all; future oriented and has outpatient providers with whom he has a good rapport. Patient has chronic SI which is usually able to be ignored any knows the difference, reaching out for help when he needs extra support. Patient has remained in good behavioral and impulse control throughout his time in the unit, appropriate with peers and staff. Patient is not in imminent risk for harm to self or others and returns to live with his parents. Patient's request for discharge honored. Patient educated on: diagnosis and medication risk/benefits Informed Consent: understands Reason for continued inpatient stay Substantial Risk for: stable for discharge Time Spent With Patient Time: Total time managing care of this patient today ____ minutes.
[2023-06-13] MEDS: LORazepam 0.5 MG TABLET PO ×2 (14:07→18:42)
--- NOTE | 2023-06-13 17:51 | PM.PSYDC ---
DS: Providers Provider Date of Service: 06/14/23 Date of admission: 06/09/23 16:10 Date of discharge: 06/14/23 Primary care physician: Unknown Physician Admitting clinician: Elyssa Vázquez Attending physician on discharge: Denys Figueroa DS: Diagnosis Discharge Diagnosis (1) Borderline personality disorder: Status: Acute (2) Bipolar 2 disorder, major depressive episode: Status: Acute DS: Medications Discharge Medications Home Medications: Home Medications Medication Instructions Recorded Confirmed aripiprazole 20 mg tablet 20 mg PO DAILY 06/08/23 06/08/23 lamotrigine 150 mg tablet 150 mg PO BID 06/08/23 06/08/23 nicotine 21 mg/24 hr daily 1 patch topical DAILY 06/08/23 06/08/23 transdermal patch omeprazole 20 mg capsule,delayed 20 mg PO DAILY 06/08/23 06/08/23 release testosterone 50 mg/5 gram (1 %) 1 packet topical QAM 06/08/23 06/08/23 transdermal gel trazodone 50 mg tablet 100 mg PO BEDTIME PRN Insomnia 06/08/23 06/08/23 Previous Rx's Medication Instructions Recorded bupropion HCl 300 mg 24 hr tablet, 300 mg PO DAILY 30 days #30 tabs 06/13/23 extended release sertraline 100 mg tablet 150 mg PO DAILY 30 days #45 tabs 06/13/23 Mental Status Exam Mental Status Exam Narrative: Pt is alert and oriented; behavior is cooperative, friendly and calm; patient is not in distress; dressed in casual attire with adequate hygiene; mood is described as good and affect congruent; eye contact appropriate; Speech is normal rate, volume and prosody and not pressured; no psychomotor agitation/retardation present; thought process is organized and goal directed; Thought content is on tx; otherwise pertinent to relevant topics and without any delusional content, paranoid ideations or grandiosity; denies any SI/HI. There is no evidence of perceptual disturbance. Patients insight and judgment are fair. Data Data Completed and Pending Completed studies during hospitalization [Text1]: 06/08/23 06/08/23 06/08/23 22:28 22:28 22:28 WBC 8.8 RBC 5.51 Hgb 15.4 Hct 44.9 MCV 81.5 MCH 27.9 MCHC 34.3 RDW 12.1 Plt Count 246 MPV 9.3 L Immature Gran % (Auto) 0.2 Neut % (Auto) 64.9 Lymph % (Auto) 28.2 [place] % (Auto) 4.6 Eos % (Auto) 1.6 Baso % (Auto) 0.5 Lymph # (Auto) 2.5 [place] # (Auto) 0.4 Eos # (Auto) 0.1 Baso # (Auto) 0.0 Abs Immat Gran (auto) 0.02 Absolute Neuts (auto) 5.7 Absolute Nucleated RBC 0.000 Nucleated RBC % (auto) 0.0 Sodium 140 Potassium 3.2 L Chloride 106 Carbon Dioxide 22 Anion Gap 15 BUN 8 L Creatinine 1.31 Estim Creat Clear Calc 89.5 Estimated GFR > 60 Random Glucose 156 H Fasting Glucose Estimat Average Glucose Hemoglobin A1c % Calcium 9.9 Total Bilirubin 0.5 AST 15 ALT 24 Alkaline Phosphatase 59 Total Protein 7.5 Albumin 4.4 Triglycerides Cholesterol LDL Cholesterol, Calc HDL Cholesterol Vitamin B12 Folate TSH Urine Color Urine Appearance Urine pH Ur Specific [place] Urine Protein Urine Glucose (UA) Urine Ketones Urine Blood Urine Nitrite Ur Leukocyte Esterase Urine Opiates Screen Not Detected Urine Fentanyl Screen Not Detected Ur Barbiturates Screen Not Detected Ur Phencyclidine Scrn Not Detected Ur Amphetamines Screen Not Detected U Benzodiazepines Scrn Not Detected Urine Cocaine Screen Not Detected U Marijuana (THC) Screen POSITIVE H Ethyl Alcohol < 10 COVID-19 ([facility]) COVID-19 Clin Com 06/08/23 06/09/23 06/10/23 22:28 09:10 08:09 WBC RBC Hgb Hct MCV MCH MCHC RDW Plt Count MPV Immature Gran % (Auto) Neut % (Auto) Lymph % (Auto) [place] % (Auto) Eos % (Auto) Baso % (Auto) Lymph # (Auto) [place] # (Auto) Eos # (Auto) Baso # (Auto) Abs Immat Gran (auto) Absolute Neuts (auto) Absolute Nucleated RBC Nucleated RBC % (auto) Sodium 139 Potassium 4.2 D Chloride 107 Carbon Dioxide 25 Anion Gap 11 L BUN 13 Creatinine 1.08 Estim Creat Clear Calc 108.6 Estimated GFR > 60 Random Glucose Fasting Glucose 112 H Estimat Average Glucose Hemoglobin A1c % Calcium 9.7 Total Bilirubin 0.4 AST 14 ALT 22 Alkaline Phosphatase 58 Total Protein 7.1 Albumin 4.2 Triglycerides 186 Cholesterol 252 LDL Cholesterol, Calc 183 HDL Cholesterol 32 Vitamin B12 Folate TSH 1.39 Urine Color Yellow Urine Appearance Clear Urine pH 6.5 Ur Specific [place] <= 1.005 Urine Protein Negative Urine Glucose (UA) Negative Urine Ketones Negative Urine Blood Negative Urine Nitrite Negative Ur Leukocyte Esterase Negative Urine Opiates Screen Urine Fentanyl Screen Ur Barbiturates Screen Ur Phencyclidine Scrn Ur Amphetamines Screen U Benzodiazepines Scrn Urine Cocaine Screen U Marijuana (THC) Screen Ethyl Alcohol COVID-19 ([facility]) Negative COVID-19 Clin Com See Note 06/10/23 06/10/23 08:09 08:09 WBC RBC Hgb Hct MCV MCH MCHC RDW Plt Count MPV Immature Gran % (Auto) Neut % (Auto) Lymph % (Auto) [place] % (Auto) Eos % (Auto) Baso % (Auto) Lymph # (Auto) [place] # (Auto) Eos # (Auto) Baso # (Auto) Abs Immat Gran (auto) Absolute Neuts (auto) Absolute Nucleated RBC Nucleated RBC % (auto) Sodium Potassium Chloride Carbon Dioxide Anion Gap BUN Creatinine Estim Creat Clear Calc Estimated GFR Random Glucose Fasting Glucose Estimat Average Glucose 94 Hemoglobin A1c % 4.9 Calcium Total Bilirubin AST ALT Alkaline Phosphatase Total Protein Albumin Triglycerides Cholesterol LDL Cholesterol, Calc HDL Cholesterol Vitamin B12 389 Folate 11.5 TSH Urine Color Urine Appearance Urine pH Ur Specific [place] Urine Protein Urine Glucose (UA) Urine Ketones Urine Blood Urine Nitrite Ur Leukocyte Esterase Urine Opiates Screen Urine Fentanyl Screen Ur Barbiturates Screen Ur Phencyclidine Scrn Ur Amphetamines Screen U Benzodiazepines Scrn Urine Cocaine Screen U Marijuana (THC) Screen Ethyl Alcohol COVID-19 ([facility]) COVID-19 Clin Com DS: Summary Hospital Course Hospital Course: LELAND Hobbs is a 33 trans male who was assessed in the community by [facility] at request of his therapist due to suicidal ideation with plan to shoot himself. Pt reports chronic intermittent suicidal ideation. Pt denies any plan or intent to harm himself. He reports feeling better today. We discussed risks, benefits and alternative treatment options. Pt asks to increase sertraline to 150mg po daily. Hospital course: pt reported he was feeling better on admission; SI fully resolved; pt's Zoloft was increased to good effect. Pt signed a 3 day notice feeling ready to return to [facility] for treatment. Patient reports that he is doing better and SI remains fully resolved.? Patient shared some of the issues surrounding this admission referred to a triggering discussion during the therapy session.? Patient reports that those emotions have now settled he feels ready to go home.? Patient likes his therapist with whom he has a good rapport.? Says he normally has chronic SI which he is able to ignore and only sometimes does get intense enough at which point he reaches out for help; patient says he knows the difference between the 2 will reach out for help again if feeling unsafe; he says he really just needed respite and will keep it in mind if he again feels need for more support.? Patient denies any access to a gun and social Work talked to his parents, with whom he lives and they corroborate.? Discussed medication feels that increase Zoloft has helped.? Does not need refills for any other medications.? Further discussed medication management. Although notation mentions that bipolar II, patient says Abilify was just simply to augment antidepressants; assembly instructions writer shared how all of his antidepressants have room to increase the dose which could perhaps render Abilify unnecessary, thus reducing potential for unwanted side effect risks; however given notation for bipolar, both patient and assembly instructions writer agreed that this was best discussed with his outpatient provider. Patient has remained in good behavioral and impulse control throughout his time in the unit, appropriate with peers and staff.? Patient is not in imminent risk for harm to self or others and returns to live with his parents.? Patient's request for discharge honored Time spent discussing smoking cessation with patient: 3 to 10 minutes Status at Discharge Functional status at discharge: independent ambulation Overall status at discharge: patient is back to baseline Time Spent with Patient Time attestation: Total time managing care of this patient today ____ minutes. Discharge Plan Discharge Anticipated Discharge Date/Time: 06/13/23 11:00 Patient Disposition: Home, Self-Care Discharge Diagnosis: Borderline personality disorder Referrals: Nati Gaines [Other] - 06/16/23 11:00 am (Follow-up discharge appointment with outpatient therapist) Liz Sargent NP [Other] - 06/20/23 2:00 pm (Follow-up discharge appointment with psychiatric medication provider) Kenia Avendano NP [Nurse Practitioner] - 06/28/23 10:00 am (in office) Discharge Medications: New bupropion HCl 300 mg Tablet Extended Release 24 Hr 300 mg PO DAILY 30 Days Qty: 30 1RF Continued trazodone 50 mg tablet 100 mg PO BEDTIME PRN (Reason: Insomnia) nicotine 21 mg/24 hr patch 24 hour 1 patch topical DAILY omeprazole 20 mg capsule,delayed release(DR/EC) 20 mg PO DAILY aripiprazole 20 mg tablet 20 mg PO DAILY testosterone 50 mg/5 gram (1 %) gel 1 packet topical QAM lamotrigine 150 mg tablet 150 mg PO BID Changed sertraline 100 mg tablet 150 mg PO DAILY 30 Days Qty: 45 1RF Discontinued bupropion HCl 150 mg tablet sustained-release 12 hr 150 mg PO BID Discharge Orders: Discharge Order (Routine); Ordered 06/14/23 Ordered By: Denys Figueroa Diet: Regular diet Activity on Discharge: As tolerated Stand Alone Forms: Patient Portal Discharge page, Community Support Care Plan Goals: Maintain mood and safe behaviors Take medications as prescribed Continue to pursue sobriety Practice coping skills Continue with outpatient providers and reach out to them as needed Health Concerns: Mood stability and behaviors Sobriety GERD Plan of Treatment: Follow up with your PCP, psychiatric provider and other outpatient providers regarding above concerns Take medications as prescribed Assessment: Risk assessment at time of discharge:? Patient was interviewed prior to discharge and found to be fully oriented and without any SI or HI. Patient has insight and demonstrates good judgment in terms of wanting to pursue treatment. Patient is not in imminent risk of harm to self or others and has a safety plan that includes presenting to the closest ER or calling 911 if feeling unsafe.? Patient has been observed closely by nursing and unit staff throughout admission; patient has not engaged in any behaviors that suggest dangerousness to self or others and has demonstrated appropriate behaviors and impulse control Discharge Date/Time: 06/14/23 11:58
[2023-06-13 18:00] VITALS: BP 128/86; PULSE 116; TEMP 36.5; O2SAT 98
[2023-06-13] MEDS: traZODone HCL 100 MG TABLET PO (20:21)
[2023-06-14] MEDS: Omeprazole 20 MG CAPSULE.DR PO (06:17)
[2023-06-14] MEDS: ARIPiprazole 20 MG TABLET PO (08:29)
[2023-06-14] MEDS: lamoTRIgine 25 MG TABLET 150 MG PO (08:29)
[2023-06-14] MEDS: Sertraline HCL 50 MG TABLET 150 MG PO (08:29)
[2023-06-14] MEDS: buPROPion HCl XL 300 MG TAB.ER.24H PO (08:29)
[2023-06-14 08:43] VITALS: BP 115/66; PULSE 94; RESP 16; TEMP 36; O2SAT 97
[2023-06-14] MEDS: Naloxone HCl Nasal TAKE HOME 4 MG SPRAY 8 MG NOSTRILALT (10:08)
[2023-06-14] MEDS: Magnesium Hydrox/Alum Hydrox 30 ML ORAL.SUSP PO (10:19)
[2023-06-14] MEDS: Nicotine 21 MG PATCH.TD24 TRANSDERMA (11:29)
== END 2023-06-14 11:58 | disposition home or self-care (01) | DRG 753 ==
LOC: HO.ED 06-09 00:59 → HO.PM5 06-09 16:50
PROVIDERS: Physician Assistant; Student in an Organized Health Care Education/Training Program; Admitting Provider Social Worker; Emergency Provider Internal Medicine; Visit Provider Psychiatry & Neurology Psychiatry
DX: F31.81 Bipolar II disorder (principal); R45.851 Suicidal ideations; F60.3 Borderline personality disorder; F64.0 Transsexualism; F17.210 Nicotine dependence, cigarettes, uncomplicated; F11.20 Opioid dependence, uncomplicated; Z20.822 Contact with and (suspected) exposure to COVID-19; Z71.6 Tobacco abuse counseling; Z79.899 Other long term (current) drug therapy
CPT/HCPCS: 36415; 80053; 80061; 80307; 81003; 82607; 82746; 83036; 84443; 85025; 87635; 93005; 99285

== ENCOUNTER → 2023-06-09 08:56 | Outpatient (BNV) | payer OTHER, SELFPAY | PROVIDERS: Admitting Provider Social Worker; Emergency Provider Internal Medicine; Visit Provider Internal Medicine Cardiovascular Disease | DX: R41.82 Altered mental status, unspecified (principal); R45.851 Suicidal ideations | CPT/HCPCS: 93010 ==

== ENCOUNTER → 2023-06-09 16:10 | Outpatient (BNV) | payer OTHER, SELFPAY | PROVIDERS: Admitting Provider Social Worker; Emergency Provider Internal Medicine; Visit Provider Psychiatry & Neurology Psychiatry | DX: F60.3 Borderline personality disorder (principal); F31.81 Bipolar II disorder | CPT/HCPCS: 99231 ==

== ENCOUNTER → 2023-06-09 16:10 | Outpatient (BNV) | payer OTHER, SELFPAY | PROVIDERS: Admitting Provider Social Worker; Emergency Provider Internal Medicine; Visit Provider Social Worker | DX: F60.3 Borderline personality disorder (principal); F31.81 Bipolar II disorder | CPT/HCPCS: 90792; 99231; 99238 ==

== ENCOUNTER → 2024-03-02 09:30 | Outpatient (BNV) | payer MEDICARE, MEDICAID, SELFPAY | PROVIDERS: Visit Provider Psychiatry & Neurology Psychiatry | DX: F31.9 Bipolar disorder, unspecified (principal); F43.10 Post-traumatic stress disorder, unspecified; F41.1 Generalized anxiety disorder; F50.89 Other specified eating disorder; F17.200 Nicotine dependence, unspecified, uncomplicated; F12.10 Cannabis abuse, uncomplicated | CPT/HCPCS: 90792; 99214 ==

== ENCOUNTER 2024-03-07 09:11 | Outpatient (REF) | payer MEDICARE, MEDICAID, SELFPAY ==
--- NOTE | 2024-03-07 09:18 | ECG_ITS ---
Test Reason : qtc check Blood Pressure : / mmHG Vent. Rate : 087 BPM Atrial Rate : 087 BPM P-R Int : 162 ms QRS Dur : 084 ms QT Int : 366 ms P-R-T Axes : 043 005 034 degrees QTc Int : 440 ms Normal sinus rhythm Normal ECG When compared with ECG of 09-JUN-2023 09:02, No significant change was found Referred By: Micaela Navarro Electronically Signed By:Ambrocio Llanos
[2024-03-07 09:37] LABS: MANUAL DIFF FLAG NO
[2024-03-07 10:04] LABS: Basophils Percent Auto 0.3 % (0-2); Eosinophils Absolute Auto 0.1 X10*3/uL (0.0-0.4); Eosinophils Percent Auto 2.1 % (0-4); Hematocrit 44.2 % (42.0-52.0); Hemoglobin 15.3 g/dl (14.0-18.0); Imm Gran Abs Auto 0.01 X10*3/uL (0.00-0.03); Imm Gran Pct Auto 0.2 % (0.0-0.4); Lymphocytes Percent Auto 30.3 % (20-40); Mean Corpuscular HGB Conc 34.6 g/dl (31.0-36.0); Mean Corpuscular Hemoglobin 28.1 pg (27.0-33.0); Mean Corpuscular Volume 81.1 fL (80.0-98.0); Mean Platelet Volume 9.9 fL (9.4-12.4); Monocytes Absolute Auto 0.3 X10*3/uL (0.1-1.2); Neutrophils Absolute Auto 4.1 x10*3/uL (2.0-8.3); Neutrophils Percent Auto 62.1 % (45-73); Platelet Count 248 X10*3/uL (160-400); Red Blood Count 5.45 X10*6/uL (4.60-5.80); White Blood Count 6.7 X10*3/uL (4.8-10.8)
[2024-03-07 10:16] LABS: Estimated Average Glucose 105 mg/dL; Hemoglobin A1c % 5.3 % (<6.0)
[2024-03-07 10:49] LABS: Alanine Aminotransferase 30 U/L (0-31); Albumin Level 4.2 g/dL (3.5-5.0); Alkaline Phosphatase 65 U/L (39-117); Anion Gap 15 (12-20); Aspartate Amino Transferase 16 U/L (5-31); Bilirubin Total 0.6 mg/dL (0.0-1.0); Blood Urea Nitrogen 11 mg/dL (9-16); Calcium 9.8 mg/dL (8.4-10.2); Carbon Dioxide 20 mmol/L (22-29); Chloride 107 mmol/L (96-108); Cholesterol 219 mg/dL (<200); Estimated Glomerular Filt Rate > 60; Free T4 (Free Thyroxine) 0.96 ng/dL (0.71-1.85); Glucose Fasting 168 mg/dL (60-99); HDL Cholesterol 41 mg/dL (>40); LDL Cholesterol Calculated 142 mg/dL (<100); Phosphorus 2.5 mg/dL (2.7-4.5); Potassium 3.8 mmol/L (3.3-5.1); Sodium 138 mmol/L (135-145); Thyroid Stimulating Hormone 0.65 uIU/mL (0.32-4.0); Total Protein 7.1 g/dL (6.5-8.0); Triglycerides 180 mg/dL (<150); Vitamin D 25-OH Total 42.3 ng/mL (>30)
[2024-03-07 10:56] LABS: Syphilis Screen Nonreactive (Nonreactive)
[2024-03-07 10:58] LABS: HBS Num1 205.91 mIU/mL (0-7.99); HBc Num1 0.06 S/CO (0.00-0.79); HBsAGNum1 0.24 S/CO (0.00-0.99); HIV AB/AG Nonreactive (Nonreactive); HIV Num 1 0.04 S/CO (0.00-0.99); Hepatitis B Core Antibody Nonreactive (Nonreactive); Hepatitis B Surface Antigen Negative (Negative); ~HepC Num1 0.05 S/CO (0.00-0.79); ~Hepatitis B Surface Antibody REACTIVE (Nonreactive); ~Hepatitis C Antibody Nonreactive (Nonreactive)
[2024-03-07 11:07] LABS: Folate 8.7 ng/mL (> or = 4.0); Vitamin B12 328 pg/mL (200-900)
[2024-03-07 13:07] LABS: CT PCR DETECTED (Not Detect.); NG PCR NOT DETECTED (Not Detect.)
== END 2024-03-07 09:12 | disposition home or self-care (01) ==
LOC: HO.LAB 09:11
PROVIDERS: PCP Nurse Practitioner Family; Visit Provider Psychiatry & Neurology Psychiatry
DX: Z13.6 Encounter for screening for cardiovascular disorders (principal); Z11.4 Encounter for screening for human immunodeficiency virus [HIV]; F31.9 Bipolar disorder, unspecified; Z20.2 Contact with and (suspected) exposure to infections with a predominantly sexual mode of transmission
CPT/HCPCS: 0353U; 80053; 80061; 82306; 82607; 82746; 83036; 83735; 84100; 84439; 84443; 85025; 86704; 86706; 86780; 86803; 87340; 87389; 93005

== ENCOUNTER → 2024-03-07 09:18 | Outpatient (BNV) | payer MEDICARE, MEDICAID, SELFPAY | PROVIDERS: PCP Nurse Practitioner Family; Visit Provider Internal Medicine Cardiovascular Disease | DX: Z51.81 Encounter for therapeutic drug level monitoring (principal) | CPT/HCPCS: 93010 ==

== ENCOUNTER 2024-03-19 09:45 | Outpatient (RCR) | payer BC, MEDICARE, MEDICAID, SELFPAY ==
[2024-03-01 11:19] VITALS: BP 104/64; PULSE 88; TEMP 37.3
[2024-03-01 11:22] VITALS: BMI 33.9
--- NOTE | 2024-03-01 14:41 | HO.PHP ---
Client's case has been opened and reviewed in treatment team.
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
--- NOTE | 2024-03-05 09:45 | HO.PHP ---
PHP admin, Sulma, informed the team that Marco will not be in attendance to program today due to having a job interview. Marco reported no safety concerns and will be here tomorrow.
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
--- NOTE | 2024-03-09 23:24 | P.PNPSP_ITS ---
Subjective Subjective Date of Service: 03/09/24 Reason For Visit: MDD Interim History: Started Latuda 20 mg in evening with meal. Overall well-tolerated. Bumped himself up to whole 40 mg tablet yesterday. Some sleep issues early waking which are not new but noticed last night. Will see if eventual increase in Latuda helps, otherwise will consider adding gbt or ambien. Mood is low but more level, less mood swinging . Denies any SI today. Had briefly experienced some last week. Didnt notice any thoughts in the past few days. Rates depression severity improved from an 8 to a 3 out of 10 for severity. Mood stability improved from a 2 to a 5 out of 10 for stability. 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 Reviewed some of lab work that has returned, including dyslipidemia on testosterone, OP doctor aware. THC positive, been using less cannabis since program. other labs still pending. CT positive, is not endorsing very minimal symptoms, 10 point ROS negative, pt would like to start course of antibiotics, pt is agreeable to follow up thereafter with community provider this month. Hx of GC >6 months ago. Medication Compliance: Yes Side effects from medications: No Attending Groups: Yes Review of Systems Acute medical concerns: Yes CT+ endorses mild symptoms - will start 7 days doxycycline Mental Status Exam Mental Status Exam Narrative: Alert, oriented, in no acute distress. Calm, cooperative, engaged. No psychomotor agitation or neurovegetative retardation. Eye contact maintained. Mood depressed, affect constricted, no irritability or lability. Speech normal. Thought process linear, coherent. Thought content related to stressors, +future- oriented, endorses thoughts of passive SI, low self esteem, but denies any helplessness, hopelessness, denies any thoughts of harming self or others.? Denies aggressive ideation or HI. No paranoia or delusional content elicited. No evidence of psychosis. Insight and judgment fair but adequate. Diagnostics Vital Signs (24Hr): BMI result Body Mass Index 33.9 Assessment & Plan Assessment & Plan (1) Bipolar disorder: Status: Acute Code(s): F31.9 - Bipolar disorder, unspecified (2) Complex posttraumatic stress disorder: Status: Acute Code(s): F43.10 - Post-traumatic stress disorder, unspecified (3) RENY (generalized anxiety disorder): Status: Acute Code(s): F41.1 - Generalized anxiety disorder (4) Other specified eating disorder: Status: Acute Code(s): F50.89 - Other specified eating disorder (5) Nicotine dependence: Status: Acute Code(s): F17.200 - Nicotine dependence, unspecified, uncomplicated (6) Cannabis abuse: Status: Acute Code(s): F12.10 - Cannabis abuse, uncomplicated Assessment and Plan: denies current use for past month Plan continue lamotrigine 25 mg/d (increase by 25 mg q 2 weeks until 100 mg/d) increase Latuda to 40 mg qd w meals continue Wellbutrin XL 300 mg qAM (reviewed s/s of hypomania/sabi, agitation, hyperactivitation - will lower vs d/c WB if px worsens) continue Haldol 2 mg bid PRN agitation for now (less often, a few times a week) Routine lab work results reviewed with patient - Dyslipidemia, elevated FBG with normal HbA1c, slightly low phosphorus, chlamydia detected start on doxycycline 100 mg BID for 7 days, also advised to make f/u appointment with PCP or care clinic Continue to monitor as per protocol Patient educated on: diagnosis, medication risk/benefits, substance abuse and medical condition Informed Consent: understands Reason for contiued partial hosp. stay Substantial Risk for: rapid decompensation and med/psych decompensation Certification I certify that partial hospital treatment is medically necessary due to the symptoms and problems resulting from the patient's mental illness and the florence lure to treat the patient at the partial hospital level of care would likely result in the patient requiring inpatient psychiatric care which could not be prevented at a less intensive level of care. Total time managing care of this patient today _30___ minutes. Discharge Plan Discharge Attending provider: Micaela Navarro Medications: New nicotine [Nicoderm CQ] 14 mg/24 hr patch 24 hour 1 patch transdermal DAILY Qty: 14 0RF lurasidone 60 mg tablet 60 mg PO QPM Qty: 30 0RF Rx Instructions: must administer with food (at least 350 calories) cholecalciferol (vitamin D3) [Vitamin D3] 125 mcg (5,000 unit) tablet 125 mcg PO DAILY Qty: 30 1RF clonidine HCl 0.1 mg tablet 0.1 mg PO BEDTIME Qty: 20 0RF melatonin 5 mg capsule 5 mg PO .QHS PRN (Reason: sleep) Qty: 30 0RF Continued omeprazole 20 mg capsule,delayed release(DR/EC) 20 mg PO DAILY testosterone 50 mg/5 gram (1 %) gel 1 packet topical QAM Patient Comments: Patient stated he has not been on for a few weeks. He plans on calling his provider for a refill. bupropion HCl 300 mg Tablet Extended Release 24 Hr 300 mg PO DAILY 30 Days Qty: 30 1RF propranolol 10 mg tablet 10 - 20 mg PO NEEDED Patient Comments: Patient has not taken in a few weeks. Plans on calling his provider for a refill. haloperidol 2 mg tablet 2 mg PO BID PRN (Reason: Anxiety) lamotrigine 25 mg tablet 25 mg PO DAILY Qty: 75 0RF Rx Instructions: take 2 tablet daily for 2 weeks then increase to 3 tablets daily Changed gabapentin 600 mg tablet 300 mg PO BEDTIME Qty: 20 0RF Discontinued trazodone 50 mg tablet 50 - 100 mg PO BEDTIME PRN (Reason: Insomnia) lamotrigine 100 mg tablet 100 mg PO DAILY Vraylar 3 mg capsule 3 mg PO DAILY Patient Comments: Patient stated he needs a refill. Has not taken in a few weeks. Last filled 12/20/23. Dr Navarro aware. No Action cholecalciferol (vitamin D3) [Vitamin D3] 50 mcg (2,000 unit) Capsule 50 mcg PO DAILY Stand Alone Forms: Patient Portal Discharge page Patient Education: Bipolar Disorder (DC) Print Language: Latvian
--- NOTE | 2024-03-12 14:57 | HO.PHP ---
[facility] staff member contacted Marco's OP therapist, Nati, in which a VM was left stating when he began program, when he will be discharging, and how he has been presenting in the group setting. [facility] staff member encouraged her to call back if she has any additional questions.
--- NOTE | 2024-03-13 11:39 | HO.PHP ---
[facility] staff member faxed a referral over for Lara to [facility] for med management. [facility] staff member is awaiting a call back with scheduled appointment dates and times.
--- NOTE | 2024-03-13 16:51 | HO.PHP ---
Late Entry 03/13/24: [facility] staff member received a phone call from Marco's OP therapist, Nati, in which she explored a little further how Lara's attendance has been within the program. [facility] staff member noted that Marco has been in attendance to program on all scheduled days thus far. Nati also noted that Marco voiced that he was trying to get an extension and is seeking a med provider. [facility] staff member disclosed that she will have a med provider for him prior to discharging and we did extend his discharge date from February to Tuesday March 19, 2024. Nati informed the clinician that she is uncertain to when she will be able to meet with Marco next due to trying to get paneled with his insurance company. Nati voiced she is hoping to hear back from them in the next couple of weeks so she can continue to provide him with support. [facility] staff member was receptive. [facility] staff member explored if she can reach out to her if she hears prior to Lara discharging that she was able to get paneled with them. Nati voiced that she would.
--- NOTE | 2024-03-13 19:09 | HO.PHPPROGNO ---
Subjective Subjective Date of Service: 03/13/24 Reason For Visit: MDD Interim History: Noting some improvements in mood since starting on Latuda. He has tolerated rapid titration and started Latuda 60 mg last night with supper. Lamcital continues at 25 mg, denies AE. Reports mood stability at a 6.5 out of 10, improved from a 3 or 4 on admission. Denies any further SI, last transient passive thought was last Tuesday and considered mild by patient. Denies any thoughts of self harm and reports last SIB was 7 years ago. Overall mood is pretty good . Experienced a dip in mood Tuesday morning when his plans fell through, but was able to move onto Plan B and went for a hike and felt better. He feels this is an improvement, didnt get stuck, ruminate and spiral. Was able to recover and was in a good mood for remainder of the day. Drank one serving of hard cider which he enjoyed. Did not feel compelled to continue to drink and felt satisfied . Denies any cravings. Last drink prior was 3 weeks earlier. Says he has to be careful as it's a slippery slope , although he expresses hope he will be able to one day manage occasional alcohol use in moderation He woke up feeling well, Tuesday. No issues with mood or energy, I felt solid . Med compliant, no tolerance issues. Medication Compliance: Yes Side effects from medications: No Attending Groups: Yes Review of Systems Acute medical concerns: No Mental Status Exam Mental Status Exam Narrative: Alert, oriented, in no acute distress. Calm, cooperative, engaged. No psychomotor agitation or neurovegetative retardation. Eye contact maintained. Mood depressed, affect constricted, no irritability or lability. Speech normal. Thought process linear, coherent. Thought content related to stressors, +future-oriented, endorses thoughts of passive SI, low self esteem, but denies any helplessness, hopelessness, denies any thoughts of harming self or others.? Denies aggressive ideation or HI. No paranoia or delusional content elicited. No evidence of psychosis. Insight and judgment fair but adequate. Diagnostics Vital Signs (24Hr): BMI result Body Mass Index 33.9 Assessment & Plan Assessment & Plan (1) Bipolar disorder: Status: Acute Code(s): F31.9 - Bipolar disorder, unspecified (2) Complex posttraumatic stress disorder: Status: Acute Code(s): F43.10 - Post-traumatic stress disorder, unspecified (3) RENY (generalized anxiety disorder): Status: Acute Code(s): F41.1 - Generalized anxiety disorder (4) Other specified eating disorder: Status: Acute Code(s): F50.89 - Other specified eating disorder (5) Nicotine dependence: Status: Acute Code(s): F17.200 - Nicotine dependence, unspecified, uncomplicated (6) Cannabis abuse: Status: Acute Code(s): F12.10 - Cannabis abuse, uncomplicated Assessment and Plan: denies current use for past month Plan continue lamotrigine 25 mg/d, anticipate increasing dose to 50 mg/d on Tuesday (continue to incr by 25 mg q 2 weeks until 100 mg/d - previous dose was 200 mg/d) increase Latuda to 60 mg qd w meals and will hold there for now start Ambien 5 mg qhs PRN sleep discontinue trazodone continue Wellbutrin XL 300 mg qAM (reviewed s/s of hypomania/sabi, agitation, hyperactivitation - will lower vs d/c WB if px worsens) continue Haldol 2 mg bid PRN agitation for now Routine lab work results reviewed with patient - dyslipidemia, slightly low phosphorus, chlamydia detected continue doxycycline 100 mg BID for 7 days, also advised to make f/u appointment with PCP or care clinic Continue to monitor as per protocol Patient educated on: diagnosis and medication risk/benefits Informed Consent: understands Reason for contiued partial hosp. stay Substantial Risk for: med/psych decompensation Certification I certify that partial hospital treatment is medically necessary due to the symptoms and problems resulting from the patient's mental illness and the failure to treat the patient at the partial hospital level of care would likely result in the patient requiring inpatient psychiatric care which could not be prevented at a less intensive level of care. Total time managing care of this patient today __30__ minutes. Discharge Plan Discharge Attending provider: Micaela Navarro Medications: New lamotrigine 25 mg tablet 25 mg PO DAILY Qty: 48 0RF Rx Instructions: take 1 tablet daily for 2 weeks then increase to 2 tablets daily nicotine [Nicoderm CQ] 14 mg/24 hr patch 24 hour 1 patch transdermal DAILY Qty: 14 0RF doxycycline monohydrate 100 mg capsule 100 mg PO BID 7 Days Qty: 14 0RF Rx Instructions: take with food and glass of water lurasidone 60 mg tablet 60 mg PO QPM Qty: 30 0RF Rx Instructions: must administer with food (at least 350 calories) zolpidem 5 mg tablet 5 mg PO BEDTIME PRN (Reason: sleep) Qty: 14 0RF cholecalciferol (vitamin D3) [Vitamin D3] 125 mcg (5,000 unit) tablet 125 mcg PO DAILY Qty: 30 1RF Continued omeprazole 20 mg capsule,delayed release(DR/EC) 20 mg PO DAILY testosterone 50 mg/5 gram (1 %) gel 1 packet topical QAM Patient Comments: Patient stated he has not been on for a few weeks. He plans on calling his provider for a refill. bupropion HCl 300 mg Tablet Extended Release 24 Hr 300 mg PO DAILY 30 Days Qty: 30 1RF haloperidol 2 mg tablet 2 mg PO BID PRN (Reason: Anxiety) Discontinued trazodone 50 mg tablet 50 - 100 mg PO BEDTIME PRN (Reason: Insomnia) Vraylar 3 mg capsule 3 mg PO DAILY Patient Comments: Patient stated he needs a refill. Has not taken in a few weeks. Last filled 12/20/23. Dr Navarro aware. No Action propranolol 10 mg tablet 10 - 20 mg PO NEEDED Patient Comments: Patient has not taken in a few weeks. Plans on calling his provider for a refill. lamotrigine 100 mg tablet 100 mg PO DAILY cholecalciferol (vitamin D3) [Vitamin D3] 50 mcg (2,000 unit) Capsule 50 mcg PO DAILY Stand Alone Forms: Patient Portal Discharge page Print Language: Greenlandic
--- NOTE | 2024-03-14 11:45 | HO.PHP ---
Addendum entered by Tanesha Sharp 03/14/24 15:34: [facility] staff member assessed for safety in regards to SI, plan or intent. Marco reported no concerns around SI, plan or intent. Marco mentioned his last suicide attempt was in 2020 and he stated he would not engage in that behavior again because of how he saw it affected others. Original Note: [facility] staff member met with Marco, in which he talked about he was triggered yesterday by a group member due to them explaining how they tried to commit suicide, which was the same way he attempted. Marco disclosed that this brought back intrusive memories and flashbacks for him. Marco disclosed that this morning when he was driving into the program he was tearful because it brought a lot up for him. Marco disclosed that he is currently doing better and was able to implement coping skills. [facility] staff member praised him for being able to utilize his coping skills and improve his mood. Marco mentioned that he would like to attend [facility] for the full inclusion DBT group. [facility] staff member was receptive and reached out with Marco to see if we could schedule an appointment time. The individual at [facility], is currently on vacation and a voicemail was left. PHP staff member and Mraco are awaiting a phone call back.
--- NOTE | 2024-03-14 11:48 | HO.PHP ---
[facility] staff member completed a relapse prevention plan with Marco, in which he noted his warning signs, his supports he can contact when having a craving, and things he can do to get his mind off of using. Lara mentioned his warning signs are thoughts of I need a drink, feeling isolated, having a bad day, and stress. Lara identified his supports to be three friends (Autumn, Cynthia, and Anjel) along with his parents. Lastly, Marco voiced the way he can get his mind off of using is going for a walk, play with his cat, do different chores and tasks, keep busy, and do a hobby (writing, reading, and puzzles).
--- NOTE | 2024-03-15 17:41 | HO.PHP ---
Lara came into program and completed community meeting but pulled [facility] staff member aside asking if he could go home due to only receiving 3 hours of sleep last night. [facility] staff member was receptive and assessed any safety concerns. Marco reported no safety concerns around SI, plan or intent and stated he will be in attendance to program tomorrow.
--- NOTE | 2024-03-16 17:23 | HO.PHP ---
[facility] staff received a call from [facility] with Marco's scheduled appointment dates and times. Marco has an OP therapy intake appointment on March 22, 2024 at 11 AM with Gina Keita, [address] [place] [address], [place], [place]. Marco has a med provider appointment on April 19, 2024 at 9 AM with Venus Menezes via telehealth.
--- NOTE | 2024-03-16 23:04 | HO.PHPPROGNO ---
Subjective Subjective Date of Service: 03/16/24 Reason For Visit: MDD Interim History: Patient reports improvements in focus and mood since starting on Abilify. Rates improvements in concentration, rated at a 2 or 3 out of 10 on admission and is not at a 7 or 8 out of 10. Reports mood stability improved from a 3 or 4 on admission and is now at a solid 8 out of 10. He has not had anything to drink for almost a week, last drank last weekend (Sat) and denies an cravings at this time and says if he is busy he is usually not something he thinks about, so much as it is circumstantial (eg out with friends). When depressed he is prone to drinking more frequently and problematically. He is still not sleeping well. He tried Ambien at 5 mg and says he could not sense any difference with taking it. Given his tenuous and often unhealthy relationship with alcohol and still trying to navigate this, I prefer we avoid BZD to address sleep. Given little impact 5 mg of Ambien had we will not bother with any further dose increase. Rather we will stop Ambien and try a combination of gabapentin and clonidine. He asks if he can take melatonin along with with this which is fine. He denies any h/h/SI. No irritability or anger. 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 Medication Compliance: Yes Side effects from medications: No Attending Groups: Yes Review of Systems Acute medical concerns: No By tmrw, pt will have completed 7 day course of doxy for CT and denies any current UG sx. Mental Status Exam Mental Status Exam Narrative: Alert, oriented, in no acute distress. Calm, cooperative, engaged. No psychomotor agitation or neurovegetative retardation. Eye contact maintained. Mood feeling better , affect variable, brighter, no irritability or lability. Speech normal. Thought process linear, coherent, goal-directed. Thought content related to stressors, future-oriented, denies any helplessness, hopelessness, or passive SI. denies any thoughts of harming self or others.? Denies aggressive ideation or HI. No paranoia or delusional content elicited. No evidence of psychosis. Insight and judgment fair but adequate. Diagnostics Vital Signs (24Hr): BMI result Body Mass Index 33.9 Assessment & Plan Assessment & Plan (1) Bipolar disorder: Status: Acute Code(s): F31.9 - Bipolar disorder, unspecified (2) Complex posttraumatic stress disorder: Status: Acute Code(s): F43.10 - Post-traumatic stress disorder, unspecified (3) RENY (generalized anxiety disorder): Status: Acute Code(s): F41.1 - Generalized anxiety disorder (4) Other specified eating disorder: Status: Acute Code(s): F50.89 - Other specified eating disorder (5) Nicotine dependence: Status: Acute Code(s): F17.200 - Nicotine dependence, unspecified, uncomplicated (6) Cannabis abuse: Status: Acute Code(s): F12.10 - Cannabis abuse, uncomplicated Assessment and Plan: denies current use for past month Plan increase Lamictal to 50 mg/d on Tuesday (continue to incr by 25 mg q 2 weeks until 100 mg/d and reassess after 2 weeks - previous dose was 200 mg/d) continue Latuda 60 mg qd w evening meal stop Ambien 5 mg qhs (not effective at 5 mg) start gabepentin 300-600 mg qhs prn sleep start clonidine 0.1 mg qhs prn sleep start melatonin 5 mg qhs continue Wellbutrin XL 300 mg qAM (reviewed s/s of hypomania/sabi, agitation, hyperactivitation - will lower vs d/c WB if px worsens) continue Haldol 2 mg bid PRN agitation (decreased utilization) Routine lab work results reviewed with patient - dyslipidemia, slightly low phosphorus, chlamydia detected and treated continue doxycycline 100 mg BID for 1 more day (completing 7 days of trtmt), also advised to make f/u appointment with PCP or care clinic discontinue trazodone (med intx), zolpidem (ineffective at 5 mg) Continue to monitor as per protocol Patient educated on: diagnosis, medication risk/benefits and substance abuse Informed Consent: understands Reason for contiued partial hosp. stay Substantial Risk for: rapid decompensation and med/psych decompensation Certification I certify that partial hospital treatment is medically necessary due to the symptoms and problems resulting from the patient's mental illness and the failure to treat the patient at the partial hospital level of care would likely result in the patient requiring inpatient psychiatric care which could not be prevented at a less intensive level of care. Total time managing care of this patient today __30__ minutes. Discharge Plan Discharge Attending provider: Micaela Navarro Medications: New nicotine [Nicoderm CQ] 14 mg/24 hr patch 24 hour 1 patch transdermal DAILY Qty: 14 0RF lurasidone 60 mg tablet 60 mg PO QPM Qty: 30 0RF Rx Instructions: must administer with food (at least 350 calories) cholecalciferol (vitamin D3) [Vitamin D3] 125 mcg (5,000 unit) tablet 125 mcg PO DAILY Qty: 30 1RF clonidine HCl 0.1 mg tablet 0.1 mg PO BEDTIME Qty: 20 0RF melatonin 5 mg capsule 5 mg PO .QHS PRN (Reason: sleep) Qty: 30 0RF Continued omeprazole 20 mg capsule,delayed release(DR/EC) 20 mg PO DAILY testosterone 50 mg/5 gram (1 %) gel 1 packet topical QAM Patient Comments: Patient stated he has not been on for a few weeks. He plans on calling his provider for a refill. bupropion HCl 300 mg Tablet Extended Release 24 Hr 300 mg PO DAILY 30 Days Qty: 30 1RF propranolol 10 mg tablet 10 - 20 mg PO NEEDED Patient Comments: Patient has not taken in a few weeks. Plans on calling his provider for a refill. haloperidol 2 mg tablet 2 mg PO BID PRN (Reason: Anxiety) lamotrigine 25 mg tablet 25 mg PO DAILY Qty: 75 0RF Rx Instructions: take 2 tablet daily for 2 weeks then increase to 3 tablets daily Changed gabapentin 600 mg tablet 300 mg PO BEDTIME Qty: 20 0RF Discontinued trazodone 50 mg tablet 50 - 100 mg PO BEDTIME PRN (Reason: Insomnia) lamotrigine 100 mg tablet 100 mg PO DAILY Vraylar 3 mg capsule 3 mg PO DAILY Patient Comments: Patient stated he needs a refill. Has not taken in a few weeks. Last filled 12/20/23. Dr Navarro aware. No Action cholecalciferol (vitamin D3) [Vitamin D3] 50 mcg (2,000 unit) Capsule 50 mcg PO DAILY Stand Alone Forms: Patient Portal Discharge page Patient Education: Bipolar Disorder (DC) Print Language: Slovak
--- NOTE | 2024-03-19 14:35 | PC.NURSE ---
Dr Navarro is aware of lab results completed on 03/07/24 incluidng FBS 168, Triglycerides 180, Cholesteral 219, LDL 142, CT PCR detected (started on Doxycycline), along with EKG results. No further orders.
--- NOTE | 2024-03-19 14:42 | PC.NURSE ---
Macro feels ready for discharge. Dr Navarro reviewed discharge medications with patient and also reviewed d/c medications with patient on discharge paperwork and patient signed the paperwork as well. Denied SI, no safety concerns. Feels better compared to when he first started the program.
--- NOTE | 2024-03-19 18:21 | HO.PHPPROGNO ---
Subjective Subjective Date of Service: 03/19/24 Reason For Visit: MDD Interim History: Alejandro anticipates discharge today. Reports doing well. Patient reports sleeping better now, finds combination of gabapentin 300 mg, clonidine 0.1 mg and melatonin works well for sleep. DId not require the whole tablet of gabapentin and will continue at 300 mg. Reports mood is good, I feel really stable now MOod is rated at a 7 out of 10 in stability. Denies any depressive symptoms. Denies any SI, last time was 2 weeks ago, no SIB thoughts for a long time. He reports having 3 drinks this weekend, was not planned but went to meet up with friends and his favorite beer was on tap. No major events occurred, but does notice his mood is lower for the first part of the next day. Says it wasnt bad, and adds that had his mood been unstable that could have lead to a few depressive days. Nonethless he has talked about his alcohol use with the group today. I'm back at square one, but I have a plan now: complete sobriety . Especially now that his mood is good, he can clearly see how much the alcohol negatively affects his mood. He has tried naltrexone in the last, but did not feel it was helpful, also says he doesn't really deal with cravings, it's more of an insight issue and appreciating that, even if he does not feel he has a strong physiological dependence on alcohol, it is in fact a problem because he sees that alcohol heavily impacts his mood. He plans to reconnect with [facility] which he has previously engaged with in the past and is more in line with his value system than AA. We reviewed his medications, he contoinues with titration of Lamcital. In the meantime we will hold Latuda at 60 mg daily. We discussed that he and his new OP provider may consider decreasing dose of Latuda to 40 mg once Lamcital is re-established at 200 mg qd (since Latuda is currently bridging mood stabilization until Lamictal more therapeutic). However if patient feels PTSD are better managed with Latuda at 60 mg, then he will likely not end up needing the full 200 mg of Lamictal, and perhaps 100-150 mg qd may be adequate, given patient is already approaching a compensated baseline/full recovery/fully stabilized mood. Medication Compliance: Yes Side effects from medications: No Attending Groups: Yes Review of Systems Acute medical concerns: No Mental Status Exam Mental Status Exam Narrative: Alert, oriented, in no acute distress. Calm, cooperative, engaged. Eye contact good. Mood good , affect brighter, no irritability or lability. Speech normal. Goal-directed, future-oriented. Denies any hopelessness or passive SI, denies any thoughts of harming self or others.?No paranoia or delusional content elicited. No AH, VH. Insight and judgment good. Diagnostics Vital Signs (24Hr): BMI result Body Mass Index 33.9 Assessment & Plan Assessment & Plan (1) Bipolar disorder: Status: Acute Code(s): F31.9 - Bipolar disorder, unspecified (2) Complex posttraumatic stress disorder: Status: Acute Code(s): F43.10 - Post-traumatic stress disorder, unspecified (3) RENY (generalized anxiety disorder): Status: Acute Code(s): F41.1 - Generalized anxiety disorder (4) Other specified eating disorder: Status: Acute Code(s): F50.89 - Other specified eating disorder (5) Nicotine dependence: Status: Acute Code(s): F17.200 - Nicotine dependence, unspecified, uncomplicated (6) Cannabis abuse: Status: Acute Code(s): F12.10 - Cannabis abuse, uncomplicated Plan Discharge from [facility] Refills sent to pharmacy continue Lamictal 50 mg/d - continue to incr by 25 mg q 2 weeks until 100 mg/d and reassess after 2-3 weeks (previous dose was 200 mg/d) continue Latuda 60 mg qd w evening meal, continue gabepentin 300 mg qhs continue clonidine 0.1 mg qhs prn sleep continue melatonin 5 mg qhs continue Wellbutrin XL 300 mg qAM (reviewed s/s of hypomania/sabi, agitation, hyperactivitation - will lower vs d/c WB if px worsens) continue Haldol 2 mg bid PRN agitation (decreased utilization from qd-q2d to 1x in past week) continue higher dose vitamin D3 at 5000 IU for next 2-3 months, recheck level discontinued meds: Vraylar (ineffective), trazodone (med interactions), zolpidem (ineffective at 5 mg) Routine lab work results reviewed with patient - dyslipidemia, slightly low phosphorus, chlamydia detected and treated finished course of doxycycline (completing 7 days of trtmt), patient will f/u appointment with outpatient provider Will defer further medication management to psych provider Patient is scheduled for intake appointment with psych provider on TueMarch [address] [facility] *Discharge Diagnoses reviewed with patient, as well as treatment plan (including medication management, potential side effects) as well as treatment rationale were also revisited *If patient wishes, they are welcome to have their outpatient provider reach out to me for any questions or further clarification regarding treatment rationale/clinical care as pertains to their stay at [facility] (contact information provided to patient) *Discharge Diagnoses reviewed with patient, as well as treatment course, discharge plan (including medication regime, medication management, potential side effects) as well as treatment rationale were also revisited *If patient wishes, they are welcome to have their outpatient provider reach out to me for any further questions or clarification as pertains to this patient?s clinical care/treatment during their stay at [facility] (contact information provided to patient) Patient educated on: diagnosis and medication risk/benefits Informed Consent: understands Reason for contiued partial hosp. stay Substantial Risk for: stable for discharge Certification I certify that partial hospital treatment is medically necessary due to the symptoms and problems resulting from the patient's mental illness and the failure to treat the patient at the partial hospital level of care would likely result in the patient requiring inpatient psychiatric care which could not be prevented at a less intensive level of care. Total time managing care of this patient today __30__ minutes. Discharge Plan Discharge Attending provider: Micaela Navarro Medications: New nicotine [Nicoderm CQ] 14 mg/24 hr patch 24 hour 1 patch transdermal DAILY Qty: 14 0RF lurasidone 60 mg tablet 60 mg PO QPM Qty: 30 0RF Rx Instructions: must administer with food (at least 350 calories) cholecalciferol (vitamin D3) [Vitamin D3] 125 mcg (5,000 unit) tablet 125 mcg PO DAILY Qty: 30 1RF clonidine HCl 0.1 mg tablet 0.1 mg PO BEDTIME Qty: 20 0RF melatonin 5 mg capsule 5 mg PO .QHS PRN (Reason: sleep) Qty: 30 0RF Continued omeprazole 20 mg capsule,delayed release(DR/EC) 20 mg PO DAILY testosterone 50 mg/5 gram (1 %) gel 1 packet topical QAM Patient Comments: Patient stated he has not been on for a few weeks. He plans on calling his provider for a refill. bupropion HCl 300 mg Tablet Extended Release 24 Hr 300 mg PO DAILY 30 Days Qty: 30 1RF propranolol 10 mg tablet 10 - 20 mg PO NEEDED Patient Comments: Patient has not taken in a few weeks. Plans on calling his provider for a refill. haloperidol 2 mg tablet 2 mg PO BID PRN (Reason: Anxiety) lamotrigine 25 mg tablet 25 mg PO DAILY Qty: 75 0RF Rx Instructions: take 2 tablet daily for 2 weeks then increase to 3 tablets daily Changed gabapentin 600 mg tablet 300 mg PO BEDTIME Qty: 20 0RF Discontinued trazodone 50 mg tablet 50 - 100 mg PO BEDTIME PRN (Reason: Insomnia) lamotrigine 100 mg tablet 100 mg PO DAILY Vraylar 3 mg capsule 3 mg PO DAILY Patient Comments: Patient stated he needs a refill. Has not taken in a few weeks. Last filled 12/20/23. Dr Navarro aware. No Action cholecalciferol (vitamin D3) [Vitamin D3] 50 mcg (2,000 unit) Capsule 50 mcg PO DAILY Stand Alone Forms: Patient Portal Discharge page Patient Education: Bipolar Disorder (DC) Print Language: Thai
== END 2024-03-19 23:59 | disposition home or self-care (01) ==
LOC: HO.PHPA 09:45
PROVIDERS: Visit Provider Psychiatry & Neurology Psychiatry
DX: F31.9 Bipolar disorder, unspecified (principal); F43.10 Post-traumatic stress disorder, unspecified; F41.1 Generalized anxiety disorder; F50.89 Other specified eating disorder; F17.200 Nicotine dependence, unspecified, uncomplicated; F12.10 Cannabis abuse, uncomplicated; Z79.899 Other long term (current) drug therapy
CPT/HCPCS: 90791; 90853